=== PATIENT | male | born 1940 | race Caucasian/White ===

== ENCOUNTER 2024-06-21 09:16 | Emergency (ER) | payer MEDICARE, BC, SELFPAY ==
[2024-06-21] VITALS (8 sets, daily range): BP systolic 114–145; BP diastolic 70–94; PULSE 66–77; BMI 31.0
--- NOTE | 2024-06-21 09:43 | ED.GENMED ---
History of Present Illness
General
Chief Complaint: Dizziness
Source: patient
Exam Limitations: none
Time Seen by Provider: 06/21/24 09:30
History of Present Illness
History of Present Illness:
See MDM
Past History
Past History
ED Past Medical History: None
ED Past Surgical History: None
Social History
Tobacco: Non-smoker
Alcohol: None
Phy Exam
Physical Exam
Physical Exam:
See MDM
Scores
[id number] Score for Afib Stroke Risk
Age in Years (65=0, 65-74=1, >/=75=2): > or = 75
Sex (Female=+1): Male
Congestive Heart Failure History (Yes=+1): No
Hypertension History (Yes=+1): No
Stroke/TIA/Thromboembolism History (Yes=+2): No
Vascular Disease History (Yes=+1): No
Diabetes Mellitus (Yes=+1): No
Score: 2
Anticoagulation Recommendations: Recommend anticoagulation (as validated in nonvalvular fib)
Course
Orders/Labs/Results
Orders:
Orders
06/21/24 09:17
Electrocardiogram (*1) Urgent
Reason for Study: Vertigo / Dizzy
EKG- Treatment ONCE
06/21/24 09:42
Metoprolol [Lopressor] 5 mg IV NOW STA
06/21/24 10:17
Complete Blood Count/With Diff Urgent
Comprehensive Metabolic Panel Urgent
Magnesium Urgent
Troponin I Urgent
06/21/24 10:24
Metoprolol Xl [Toprol Xl] 12.5 mg PO NOW STA
06/21/24 11:19
Electrocardiogram (*1) Urgent
Reason for Study: Shortness of Breath
EKG- Treatment ONCE
06/21/24 11:20
Apixaban [Eliquis] 5 mg PO ONCE ONE
Abnormal Lab Results
06/21/24
10:17
RBC 4.56 L 10^6/uL
(4.70-6.10)
MCH 32.7 H pg
(27.0-31.0)
06/21/24 10:17
06/21/24 10:17
Vital Signs
Initial and Last Documented VS:
Initial Vital Signs
Temp Pulse Resp BP Pulse Ox
98.1 F 86 20 136/94 94
06/21/24 09:28 06/21/24 09:28 06/21/24 09:28 06/21/24 09:28 06/21/24 09:28
Last Documented Vital Signs
Temp Pulse Resp BP Pulse Ox
98.1 F 86 20 136/94 95
06/21/24 09:28 06/21/24 09:28 06/21/24 09:28 06/21/24 09:28 06/21/24 09:28
MDM/Problems Addressed
Differential Diagnosis Includes:
HPI and MDM Narrative:
83-year-old male presenting with intermittent dizziness over the past week or so. Screening EKG performed in triage showing rate controlled A-fib. Patient denies any prior history. We discussed that his symptoms are likely A-fib related. He did
note some mild chest pressure earlier today. He has been able to walk without difficulty.
Given the new onset A-fib, will obtain basic blood work to rule out any sort of metabolic derangement. He is extremely well-appearing nontoxic. Will start beta-wilfrid and Eliquis
Physical exam
General: Well appearing and non-toxic
HEENT: protecting airway
Neck: appears supple
CV: No evidence of cyanosis. Irregular rhythm, regular rate
Resp: No accessory muscle use
Abd: Non-distended
Extremities: No deformities
Neuro: alert
Psych: Normal affect
Skin: Intact
Problems Addressed including Acute and Chronic Conditions affecting care:
1. New onset A-fib
Acuity: acute
Prognosis: stable
Details: Patient is rate controlled. Will start low-dose beta-wilfrid and Eliquis. Will obtain basic blood work
Updates
Blood work without significant abnormalities. On reassessment, patient now in sinus rhythm. Patient started on Eliquis given his elevated [id number] score.
Differential Diagnosis (but not limited to): A-fib, hyperthyroidism
Testing considered: Chest x-ray but he denies shortness of breath currently
Drug therapy (if applicable): OTC meds, please see d/c instruction regarding Rx drugs
Amount and/or Complexity of Data Reviewed
Clinical info obtained from: Patient
External data reviewed: N/A
Labs I independently reviewed (but not limited to): trop normal
Radiology: N/A
Pulse Ox: not hypoxic
EKG independently reviewed: A-fib, left axis, no STEMI
Clinical Project Coordinator: Rate Controlled A-fib
Critical Care: N/A
Risk of Complication:
Social Determinants of health: Good social support
Discussed with other providers: N/A
Escalation of Care includes Admit/Obs: After being observed in the Emergency Department, pt stable for discharge.
Occasional wrong word or 'sound a like' substitutions may have occurred due to the inherent limitations of voice recognition software. Read the chart carefully and recognize, using context, where substitutions have occurred.
*Critical Care Note
Total Time (30-74mins, 75-104mins- exclusive of procedures): Not Applicable
ED Attending Note
-
Portions of this chart may have been created with voice recognition software.� Occasional wrong word or��sound alike� substitutions may have occurred due to the inherent limitations of voice recognition software.
Discharge Plan
Departure
Patient Disposition: Home (Routine Discharge)
Date of Disposition: 06/21/24
Time of Disposition: 11:22
Patient with high blood pressure during this ER visit?: No
Discharge Problem:
New onset atrial fibrillation
Instructions: Atrial Fibrillation (DC)
Prescriptions:
New
metoprolol succinate [Toprol XL] 25 mg tablet extended release 24 hr
12.5 mg PO BID Qty: 30 0RF
Eliquis 5 mg tablet
5 mg PO BID Qty: 60 0RF
Referrals:
Jenaro Barrett MD [Active] -
Doyle Peterson DO [Family Provider] -
Activity Restrictions/Additional Instructions:
Please return for any worsening symptoms.
You may return at any time if you have further concerns.
Please follow up with your doctor at the first available appointment, preferably this week.
Please make an appointment to see the department administrator.
You were given your first dose of blood pressure medicine and blood thinner today. You can take your second dose of both later tonight.
Thank you for choosing [facility].
Interventions
Interventions:
*Risk Screen - Suicide Last Done: 06/21/24 09:28
*General Assessment Last Done: 06/21/24 10:04
*Neglect/Abuse Screening Last Done: 06/21/24 09:30
ED- Fall Risk Assessment Last Done: 06/21/24 10:04
*ED COVID-19 Vaccine History Last Done: 06/21/24 10:04
Discharge Date and Time
Print Language: ZAMBIAN
[2024-06-21 10:31] LABS: % Basophils 0.5 % (0-2); % Immature Granulocytes 0.3 % (0-0.5); % Lymphocytes 30.8 % (20.5-51.1); % Monocytes 8.7 % (1.7-9.3); % Neutrophils 57.7 % (42.2-75.2); Absolute Eosinophils 0.1 10^3/uL (0-0.7); Absolute Lymphocytes 1.9 10^3/uL (1.2-3.4); Absolute Monocytes 0.5 10^3/uL (0.1-0.6); Absolute Neutrophils 3.5 10^3/uL (1.4-6.5); Hematocrit 42.2 % (39.0-52.0); Hemoglobin 14.9 g/dL (13.0-18.0); Mean Corp Hgb Conc. 35.3 g/dL (33.0-37.0); Mean Corpuscular Hgb 32.7 pg (27.0-31.0); Mean Corpuscular Volume 92.5 fL (80.0-94.0); Mean Platelet Volume 10.2 fL (7.4-10.4); Nucleated Red Blood Cells % 0 % (-); Platelet Count 218 10^3/uL (130-400); Red Blood Cell Count 4.56 10^6/uL (4.70-6.10); Red Cell Dist. Width 12.1 % (11.5-14.5); White Blood Cell Count 6.1 10^3/uL (4.8-10.8)
[2024-06-21 10:45] LABS: ALT (SGPT) 18 U/L (0-50); AST (SGOT) 23 U/L (17-59); Albumin 4.2 g/dl (3.5-5.0); Alkaline Phosphatase 50 U/L (38-126); Blood Urea Nitrogen 17 mg/dl (9-20); Calcium 9.8 mg/dl (8.4-10.2); Carbon Dioxide 22 mmol/L (22-30); Chloride 106 mmol/L (98-107); Estimated Creatinine Clearance 72 ml/min; Glucose 81 mg/dl (70-99); Magnesium 2.2 mg/dl (1.6-2.3); Potassium 4.6 mmol/L (3.5-5.1); Sodium 143 mmol/L (135-145); Total Protein 6.3 g/dl (6.3-8.2); eGFR > 60.00
[2024-06-21 10:55] LABS: Troponin I < 0.012 ng/ml
[2024-06-21] MEDS: TOPROL XL 12.5 MG PO (11:49)
[2024-06-21] MEDS: ELIQUIS 5 MG PO (11:50)
== END 2024-06-21 12:05 | disposition home or self-care (01) ==
LOC: EMR 09:16
PROVIDERS: EMERGENCY PHYSICIAN Student in an Organized Health Care Education/Training Program; FAMILY PHYSICIAN Internal Medicine
DX: I48.91 Unspecified atrial fibrillation (principal); R42 Dizziness and giddiness; R07.89 Other chest pain; Z88.1 Allergy status to other antibiotic agents
CPT/HCPCS: 99284; 80053; 83735; 84484; 85025; 93005

== ENCOUNTER 2024-06-22 09:15 | Emergency (ER) | payer MEDICARE, BC, SELFPAY ==
[2024-06-22 09:25] VITALS: BP 138/81
--- NOTE | 2024-06-22 09:31 | ED.GENMED ---
History of Present Illness
General
Chief Complaint: Dizziness
Source: patient and spouse
Exam Limitations: none
Time Seen by Provider: 06/22/24 09:27
History of Present Illness
History of Present Illness:
See MDM
Past History
Past History
ED Past Medical History: Arrthythmia
ED Past Surgical History: None
Social History
Tobacco: Non-smoker
Alcohol: None
Phy Exam
Physical Exam
Physical Exam:
See MDM
Course
Orders/Labs/Results
Orders:
Orders
06/22/24
Holter Monitor and Scan*(3) Stat
Comment: ALREADY DONE
06/22/24 09:16
Electrocardiogram (*1) Urgent
Reason for Study: Vertigo / Dizzy
EKG- Treatment ONCE
06/22/24 09:40
Orthostatic VS- Treatment ONCE
06/22/24 09:41
CT Head W/o Iv Contrast Urgent
Comment:
Reason For Exam: headache, dizziness
06/22/24 09:44
CARDIOLOGY CONSULT Urgent
Consulting Provider: Jermain Gonzalez
Was physician already notified: Yes
06/22/24 11:21
Electrocardiogram (*1) Urgent
Reason for Study: Tachycardia
EKG- Treatment ONCE
Vital Signs
Initial and Last Documented VS:
Initial Vital Signs
Temp Pulse Resp BP Pulse Ox
97.9 F 78 16 138/81 98
06/22/24 09:25 06/22/24 09:25 06/22/24 09:25 06/22/24 09:25 06/22/24 09:25
Last Documented Vital Signs
Temp Pulse Resp BP Pulse Ox
97.9 F 63 14 110/74 96
06/22/24 09:25 06/22/24 11:45 06/22/24 11:45 06/22/24 11:00 06/22/24 11:45
MDM/Problems Addressed
Differential Diagnosis Includes:
HPI and MDM Narrative:
83-year-old male presenting back to the emergency department for evaluation of dizziness. Patient was seen in the emergency department yesterday and his symptoms were believed to be related to new onset A-fib. He was started on Eliquis and
metoprolol. Patient was concerned because his blood pressure has been dropping and he is dizzy when he stands. Patient return for further evaluation
Patient states he only took 1 dose of metoprolol yesterday. He did not take his nighttime dose or his morning dose today. His dizziness appears to be random. It cannot reproduce the dizziness when I stand up quickly or with certain head
movements. No nystagmus noted. Will have cardiology evaluate
Physical exam
General: Well appearing and non-toxic
HEENT: protecting airway. No nystagmus
Neck: appears supple
CV: No evidence of cyanosis. Irregular rhythm. Regular rate
Resp: No accessory muscle use
Abd: Non-distended
Extremities: No deformities
Neuro: alert
Psych: Normal affect
Skin: Intact
Problems Addressed including Acute and Chronic Conditions affecting care:
1. Dizziness
Acuity: acute
Prognosis: stable
Details: Likely in setting of A-fib versus medication side effect
2. [ ]
Acuity: acute
Prognosis: stable
Details:
3. [ ]
Acuity: acute
Prognosis: stable
Details:
4. [ ]
Acuity: acute
Prognosis: stable
Details:
5. [ ]
Acuity:
Prognosis:
Details:
Updates
Cardiology did evaluate and believe that the symptoms could be related to wandering pacemaker rather than A-fib. The plan is CAD rule out as an outpatient with stress and echo before placing on flecainide. Cardiology indicated that patient does
not need Eliquis. He may continue the prescribed metoprolol
Differential Diagnosis (but not limited to): Medication reaction, vertigo, A-fib
Testing considered: Repeat blood work but he just had it done yesterday
Drug therapy (if applicable): OTC meds, please see d/c instruction regarding Rx drugs
Amount and/or Complexity of Data Reviewed
Clinical info obtained from: Patient
External data reviewed: N/A
Labs I independently reviewed (but not limited to): [ ]
Radiology: N/A
Pulse Ox: not hypoxic
EKG independently reviewed: A-fib, normal axis, no STEMI
Event Decorator: A fib
Critical Care: N/A
Risk of Complication:
Social Determinants of health: Good social support
Discussed with other providers: N/A
Escalation of Care includes Admit/Obs: After being observed in the Emergency Department, pt stable for discharge.
Occasional wrong word or 'sound a like' substitutions may have occurred due to the inherent limitations of voice recognition software. Read the chart carefully and recognize, using context, where substitutions have occurred.
*Critical Care Note
Total Time (30-74mins, 75-104mins- exclusive of procedures): Not Applicable
ED Attending Note
-
Portions of this chart may have been created with voice recognition software.� Occasional wrong word or��sound alike� substitutions may have occurred due to the inherent limitations of voice recognition software.
Discharge Plan
Departure
Patient Disposition: Home (Routine Discharge)
Date of Disposition: 06/22/24
Time of Disposition: 12:28
Patient with high blood pressure during this ER visit?: No
Discharge Problem:
Wandering atrial pacemaker
Prescriptions:
No Action
metoprolol succinate [Toprol XL] 25 mg tablet extended release 24 hr
12.5 mg PO BID Qty: 30 0RF
Eliquis 5 mg tablet
5 mg PO BID Qty: 60 0RF
Referrals:
Angelica Ramirez MD [Active] - (Follow up one week after testing.)
Doyle Peterson DO [Family Provider] -
Activity Restrictions/Additional Instructions:
A Holter monitor, echocardiogram, and Lexiscan nuclear stress test has been ordered for you. The cardiology office will assist you with arranging testing.
Please take your metoprolol as prescribed. Cardiology indicated that you do not need to take Eliquis.
Interventions
Interventions:
*Risk Screen - Suicide Last Done: 06/22/24 09:25
*General Assessment Last Done: 06/22/24 09:36
*Neglect/Abuse Screening Last Done: 06/22/24 09:25
ED- Fall Risk Assessment Last Done: 06/22/24 09:36
*ED COVID-19 Vaccine History Last Done: 06/22/24 09:36
*Nursing Disposition Last Done: 06/22/24 12:41
ED- Neurological Assessment Last Done: 06/22/24 09:36
Discharge Date and Time
Discharge Date/Time: 06/22/24 12:42
Print Language: CZECH
[2024-06-22 09:36] VITALS: BMI 27.3
[2024-06-22 09:43] VITALS: BP 106/70; BP 108/78; BP 111/85; PULSE 100; PULSE 74; PULSE 80
[2024-06-22 09:45] VITALS: BP 108/78; BP 111/85
--- NOTE | 2024-06-22 10:22 | CON.CAR ---
Addendum entered and electronically signed by Jermain Gonzalez MD 06/22/24 12:07:
I saw and examined the patient.
The ENGINEERING TEACHER's note was reviewed and I agree with the note.
Comment: 83-year-old male who presented to the emergency department yesterday, 06/21/2024 with intermittent dizziness. He appears to have intermittent atrial tachycardia after discussion with electrophysiology.
It is unclear how symptomatic he is, and whether he could have a component of tachybrady syndrome.
- HM
- ECHO
- Stress test for possible flecainide use
He will have f/u with Dr Ramirez.
Original Note:
Consultation
Consultation Request
Date/Time Consultation Requested: 06/22/2024 09:45
Date/Time Consultation Performed: 06/22/2024 10:20
Requesting Provider: Dr. Jeffries
Performing Provider: ALAN Montalvo for Dr. Gonzalez
Reason for Consultation: Dizziness, paroxysmal atrial fibrillation
Medical History
-
Chief Complaint: Dizziness
History of Present Illness:
Reynold Mcpherson is an 83-year-old male who presented to the emergency department yesterday, 06/21/2024 with intermittent dizziness. This started 1 week prior to arrival. He was diagnosed with rate controlled atrial fibrillation by the ER physician
and was started on metoprolol succinate and apixaban. He was discharged home. He presented back to the emergency room today for evaluation of persistent dizziness. He took 1 dose of metoprolol yesterday, he did not take his evening dose last
evening nor today's morning dose. On telemetry he appears to have frequent PACs with a wandering atrial pacemaker. He also appears to have some atrial tachycardia. He had episodes of this during consultation but did not endorse any symptoms.
Past Medical History
Past Medical History: Other (Elevated PSA)
Past Surgical History: Orthopedic (Left knee [2011], Lumbar laminectomy)
Social History
Tobacco: Non-Smoker
Alcohol: Occasional
Drug: None
Personal:
Living: With Family
Employment: Retired
Family History
Family History: Reviewed & Not Pertinent (Father with cerebral aneurysm, at age 56. Sister with leukemia, at age 79.)
Allergies / Home Medications
Allergy/AdvReac Type Severity Reaction Status Date / Time
levofloxacin Allergy Rash Verified 06/22/24 09:26
�Medication �Instructions �Recorded �Confirmed �Type
apixaban 5 mg tablet (Eliquis) 5 mg PO BID #60 tabs 06/21/24 Rx
metoprolol succinate 25 mg 12.5 mg (1/2 x 25 mg) PO BID #30 06/21/24 Rx
tablet,extended release 24 hr tabs
(Toprol XL)
Review of Systems
-
History Source: Patient
All other systems: Negative unless noted
Constitutional: No Symptoms
EENT: No Symptoms
Respiratory: No Symptoms
Cardiac: No Symptoms
Abdomen/GI: No Symptoms
: No Symptoms
Musculoskeletal: No Symptoms
Skin: No Symptoms
Neurological: Dizzy
Endocrine: No Symptoms
Hematologic/Lymphatic: No Symptoms
Physical Exam
Vital Signs
Temp Pulse Resp BP Pulse Ox
97.9 F 78 16 108/78 98
06/22/24 09:25 06/22/24 09:25 06/22/24 09:25 06/22/24 09:45 06/22/24 09:45
Physical Exam
General: Well Developed, Well Nourished, No Apparent Distress and Comfortable
HEENT: Normocephalic, Anicteric and Moist Mucous Membranes
Respiratory: Clear and Non Labored Respirations
Cardiac: S1/S2 and Irregular Rhythm; Negative Peripheral Edema
Breast: Deferred by me
GI: Soft, Non Tender, Non Distended and Normal Bowel Sounds
Rectal: Deferred by Provider
Genito-urinary: No Costovertebral Tender
Musculoskeletal: No Clubbing, No Cyanosis and No Edema
Skin: Warm and Dry
Neuro: AO x 3
Hematologic/Lymphatic: No Lymphadenopathy
Psych: Calm
Impression / Plan
-
Dizziness
-Not perfectly clear, arrhythmia on telemetry does not coincide with dizziness
-Frequent and intermittent, cannot reproduce
PACs
Wandering atrial pacemaker
-Flecainide would be appropriate, he needs ischemic evaluation prior to initiation
-Holter, echocardiogram, and Lexiscan nuclear stress testing will be arranged
Paroxysmal atrial fibrillation, diagnosed yesterday, none seen on telemetry, on apixaban
RBBB, new compared to 2019
Elevated PSA, follows with urology in the outpatient setting
Data Reviewed
-
EKG: Report Reviewed by me (Sinus rhythm with sinus arrhythmia, RBBB, rate 79)
CT Scan: Report Reviewed by me (Head: No acute intracranial abnormality.)
Labs: Labs Reviewed by me
Old Records: Reviewed
[2024-06-22 10:38] VITALS: BP 115/75
[2024-06-22 11:00] VITALS: BP 110/74
== END 2024-06-22 12:42 | disposition home or self-care (01) ==
LOC: EMR 09:15
PROVIDERS: CONSULT PHYSICIAN Internal Medicine Cardiovascular Disease; EMERGENCY PHYSICIAN Student in an Organized Health Care Education/Training Program; FAMILY PHYSICIAN Internal Medicine
DX: I49.1 Atrial premature depolarization (principal); I49.8 Other specified cardiac arrhythmias; I48.0 Paroxysmal atrial fibrillation; Z79.01 Long term (current) use of anticoagulants
CPT/HCPCS: 99284; 70450; 93005; 93225; 93226

== ENCOUNTER → 2024-07-09 13:47 | Outpatient (REF) | payer MEDICARE, BC, SELFPAY | LOC: HWRCS 13:47 | PROVIDERS: ATTENDING PHYSICIAN Internal Medicine Cardiovascular Disease; FAMILY PHYSICIAN Internal Medicine | DX: I49.1 Atrial premature depolarization (principal); I49.8 Other specified cardiac arrhythmias | CPT/HCPCS: 93306 ==

== ENCOUNTER → 2024-07-10 07:18 | Outpatient (REF) | payer MEDICARE, BC, SELFPAY | LOC: DHCBC/DCA 07:18 | PROVIDERS: ATTENDING PHYSICIAN Internal Medicine Cardiovascular Disease; FAMILY PHYSICIAN Internal Medicine | DX: I49.1 Atrial premature depolarization (principal); I49.8 Other specified cardiac arrhythmias; R94.31 Abnormal electrocardiogram [ECG] [EKG] | CPT/HCPCS: 78452; 93017; A9500; J2785 ==

== ENCOUNTER → 2024-07-14 06:37 | Outpatient (REF) | payer MEDICARE, BC, SELFPAY ==
[2024-07-14 10:13] LABS: HDL Cholesterol 57 mg/dl; LDL Cholesterol, Calculated 114 mg/dl; Total Cholesterol 187 mg/dl (50-199); Triglyceride 80 mg/dl (10-149); Very Low Density Lipoprotein 16 mg/dl (0-30)
[2024-07-14 10:13] LABS: Urine Albumin Negative (Neg - Trace); Urine Bilirubin Negative (Negative); Urine Character Clear (Clear); Urine Color Yellow; Urine Glucose Negative (Negative); Urine Ketone Negative (Negative); Urine Leukocyte Negative (Negative); Urine Nitrite Negative (Negative); Urine Occult Blood Negative (Negative); Urine Specific Gravity 1.015 (<1.030); Urine Urobilinogen Negative (Neg - 1+)
[2024-07-14 10:45] LABS: TSH 4.33 uIU/ml (0.47-4.68)
== END ==
LOC: HWLAB 06:37
PROVIDERS: ATTENDING PHYSICIAN Internal Medicine
DX: N40.1 Benign prostatic hyperplasia with lower urinary tract symptoms (principal); E78.2 Mixed hyperlipidemia; I47.19 Other supraventricular tachycardia; Z12.5 Encounter for screening for malignant neoplasm of prostate
CPT/HCPCS: 36415; 80061; 81003; 84443; G0103

== ENCOUNTER 2024-07-23 22:09 | Observation (INO) | payer MEDICARE, BC, SELFPAY ==
[2024-07-23] VITALS (11 sets, daily range): BP systolic 110–143; BP diastolic 72–102; BMI 29.1
--- NOTE | 2024-07-23 20:02 | ED.GENMED ---
History of Present Illness
<Talha Gagnon PA-C - Last Filed: 07/23/24 21:02>
General
Chief Complaint: Dizziness
Source: patient
Exam Limitations: none
Time Seen by Provider: 07/23/24 19:44
History of Present Illness
History of Present Illness:
83-year-old male presents with heart racing and dizziness. This has been worse over the past 2 days. He got up in the middle the night to urinate and he felt dizzy and that his heart was racing. This has been intermittent since then. Today has
been more prominent. 12-1/2 of metoprolol twice a day of which she did already today. He was here in the hospital about a month ago and thought to have an atrial tachycardia. He has since had a stress test and echocardiogram. He is followed by
cardiology. Not currently anticoagulated. He denies chest pain. No leg swelling. No arm numbness or weakness. No other complaints
Past History
<DANITA Carvajal Last Filed: 07/23/24 21:02>
Past History
ED Past Medical History: Arrthythmia
ED Past Surgical History: None
Social History
Tobacco: Non-smoker
Alcohol: None
Phy Exam
<DANITA Carvajal Last Filed: 07/23/24 21:02>
Physical Exam
Physical Exam:
General: Well-appearing male no acute respiratory distress
HEENT: Normocephalic atraumatic pupils equal round reactive to light
Heart: Irregular and tachycardic at times and regular rate and rhythm at other times
Lungs: Clear no wheeze
Abdomen is soft nontender nondistended
Extremities: No cyanosis or edema
Skin is warm no rash
Course
<DANITA Carvajal Last Filed: 07/23/24 21:02>
Orders/Labs/Results
Orders:
Orders
07/23/24 18:52
Electrocardiogram (*1) Urgent
Reason for Study: Vertigo / Dizzy
EKG- Treatment ONCE
07/23/24 19:59
Metoprolol [Lopressor] 2.5 mg IV NOW STA
07/23/24 20:06
Complete Blood Count/With Diff Urgent
Comprehensive Metabolic Panel Urgent
TSH Reflex To Free T4 Urgent
Abnormal Lab Results
07/23/24
20:06
MCH 32.5 H pg
(27.0-31.0)
Absolute Lymphs (auto) 3.7 H 10^3/uL
(1.2-3.4)
Absolute Monos (auto) 0.8 H 10^3/uL
(0.1-0.6)
Carbon Dioxide 21 L mmol/L
(22-30)
BUN 21 H mg/dl
(9-20)
07/23/24 20:06
07/23/24 20:06
Vital Signs
Initial and Last Documented VS:
Initial Vital Signs
Temp Pulse Resp Pulse Ox
98.8 F 75 17 99
07/23/24 18:57 07/23/24 18:57 07/23/24 18:57 07/23/24 18:57
Last Documented Vital Signs
Temp Pulse Resp BP Pulse Ox
98.8 F 73 15 117/82 95
07/23/24 18:57 07/23/24 20:45 07/23/24 20:45 07/23/24 20:30 07/23/24 20:01
Rashilt;Chris Dumont, DO - Last Filed: 07/23/24 20:29>
Orders/Labs/Results
Orders:
Orders
07/23/24 18:52
Electrocardiogram (*1) Urgent
Reason for Study: Vertigo / Dizzy
EKG- Treatment ONCE
07/23/24 19:59
Metoprolol [Lopressor] 2.5 mg IV NOW STA
07/23/24 20:06
Complete Blood Count/With Diff Urgent
Comprehensive Metabolic Panel Urgent
TSH Reflex To Free T4 Urgent
Abnormal Lab Results
07/23/24
20:06
MCH 32.5 H pg
(27.0-31.0)
Absolute Lymphs (auto) 3.7 H 10^3/uL
(1.2-3.4)
Absolute Monos (auto) 0.8 H 10^3/uL
(0.1-0.6)
Carbon Dioxide 21 L mmol/L
(22-30)
BUN 21 H mg/dl
(9-20)
07/23/24 20:06
07/23/24 20:06
Vital Signs
Initial and Last Documented VS:
Initial Vital Signs
Temp Pulse Resp Pulse Ox
98.8 F 75 17 99
07/23/24 18:57 07/23/24 18:57 07/23/24 18:57 07/23/24 18:57
Last Documented Vital Signs
Temp Pulse Resp BP Pulse Ox
98.8 F 73 15 117/82 95
07/23/24 18:57 07/23/24 20:45 07/23/24 20:45 07/23/24 20:30 07/23/24 20:01
Rashilt;Talha Gagnon PA-C - Last Filed: 07/23/24 21:02>
MDM/Problems Addressed
Differential Diagnosis Includes:
Patient with dizzy sensation with palpitations. Several times when I was in the room he went abruptly from a heart rate in the 70s to 180s. He felt it as a pressure in his head and dizziness. These episodes lasted less than a minute but happen
frequently.
Check electrolytes and thyroid. Will give Lopressor IV. Discussed with emergency room attending
<Talha Gagnon PA-C - Last Filed: 07/23/24 21:02>
*Critical Care Note
Total Time (30-74mins, 75-104mins- exclusive of procedures): Not Applicable
<Talha Gagnon PA-C - Last Filed: 07/23/24 21:02>
Update Note
Update Note:
Labs reviewed without significant electrolyte abnormality. Patient continues to go in and out of atrial tachycardia. Lopressor given. Will admit to hospitalist
ED Attending Note
<Talha Gagnon PA-C - Last Filed: 07/23/24 21:02>
-
Portions of this chart may have been created with voice recognition software.� Occasional wrong word or��sound alike� substitutions may have occurred due to the inherent limitations of voice recognition software.
<Chris Dumont DO - Last Filed: 07/23/24 20:29>
ED Attending Note
Patient seen and examined by attending physician: Yes
I performed the substantive portion of visit, reviewed & personally made and approve the management plan that is documented in note by myself or KYLER.: Yes
ED Attending Note:
Seen with PA examined independently very pleasant 83-year-old male and his presents with dizziness near syncope history of the same symptoms are progressive has seen cardiology and EP looks that he has atrial tach he is on beta-blockers had an
echo or Holter scheduled for an EP study here he has had several episodes where his heart rate goes into the 180s, given extra dose of IV beta-wilfrid at this point I think it safest to admit him to the hospital
Discharge Plan
Departure
Patient Disposition: Admit
Date of Disposition: 07/23/24
Time of Disposition: 21:01
Admit to: Telemetry
Presentation/result/management discussed w/ accepting MD/DO: Hospitalist
Discharge Problem:
Pre-syncope, Tachycardia
Prescriptions:
No Action
metoprolol succinate [Toprol XL] 25 mg tablet extended release 24 hr
12.5 mg PO BID Qty: 30 0RF
Referrals:
Doyle Peterson DO [Family Provider] -
Interventions
Interventions:
*Risk Screen - Suicide Last Done: 07/23/24 18:57
*General Assessment Last Done: 07/23/24 18:57
*Neglect/Abuse Screening Last Done: 07/23/24 18:57
ED- Fall Risk Assessment Last Done: 07/23/24 20:01
*ED COVID-19 Vaccine History Last Done: 07/23/24 20:01
ED- Neurological Assessment Last Done: 07/23/24 20:01
ED- Cardiac Assessment Last Done: 07/23/24 20:01
Discharge Date and Time
Print Language: LAO
[2024-07-23] MEDS: LOPRESSOR 2.5 MG IV ×2 (20:10→21:32)
[2024-07-23 20:15] LABS: % Basophils 0.4 % (0-2); % Immature Granulocytes 0.4 % (0-0.5); % Lymphocytes 37.2 % (20.5-51.1); % Monocytes 7.9 % (1.7-9.3); % Neutrophils 52.1 % (42.2-75.2); Absolute Eosinophils 0.2 10^3/uL (0-0.7); Absolute Lymphocytes 3.7 10^3/uL (1.2-3.4); Absolute Monocytes 0.8 10^3/uL (0.1-0.6); Absolute Neutrophils 5.2 10^3/uL (1.4-6.5); Hematocrit 44.3 % (39.0-52.0); Hemoglobin 15.8 g/dL (13.0-18.0); Mean Corp Hgb Conc. 35.7 g/dL (33.0-37.0); Mean Corpuscular Hgb 32.5 pg (27.0-31.0); Mean Corpuscular Volume 91.2 fL (80.0-94.0); Mean Platelet Volume 10.2 fL (7.4-10.4); Nucleated Red Blood Cells % 0 % (-); Platelet Count 239 10^3/uL (130-400); Red Blood Cell Count 4.86 10^6/uL (4.70-6.10); Red Cell Dist. Width 12.5 % (11.5-14.5)
[2024-07-23 20:52] LABS: ALT (SGPT) 18 U/L (0-50); AST (SGOT) 28 U/L (17-59); Albumin 4.8 g/dl (3.5-5.0); Alkaline Phosphatase 52 U/L (38-126); Blood Urea Nitrogen 21 mg/dl (9-20); Carbon Dioxide 21 mmol/L (22-30); Chloride 106 mmol/L (98-107); Glucose 93 mg/dl (70-99); Potassium 4.3 mmol/L (3.5-5.1); Sodium 141 mmol/L (135-145); Total Bilirubin 0.8 mg/dl (0.2-1.3); Total Protein 7.1 g/dl (6.3-8.2); eGFR > 60.00
[2024-07-23 21:24] LABS: TSH Reflex To Free T4 5.61 uIU/ml (0.47-4.68)
--- NOTE | 2024-07-23 21:26 | HPS.HSE ---
Family Physician
-
Family Physician: Doyle Peterson
Chief Complaint
-
Dizziness
History of Present Illness
This is a 83-year-old male who comes into the emergency department with recurrent episodes of dizziness and lightheadedness.
Patient was seen in the emergency department about 1 week ago and diagnosed with atrial fibrillation and monitoring pacemaker. At the time was complaining of episodes of lightheadedness that was recurrent. He had telemetry which showed
supraventricular tachycardia to as high as 170s. However on evaluation did not seem to appear to be correlating with his symptoms of dizziness. He had follow-up cardiology evaluation. He was placed on metoprolol 12.5 mg of XL twice daily. He
also had an echocardiogram which was normal except for mild regurgitation. He had stress test that shows no evidence of ischemia. He is pending MRI and an EP study at this time. He is not currently on any anticoagulation due to cardiology feeling
the patient does not have atrial fibrillation.
Patient saw cardiology yesterday and said he was feeling fine. He did have 1 episode of vertigo while he was in the bathroom. However today he has been having recurrent episodes of lightheadedness. Reports that he feels his episodes lasting less
than a minute but occurring quite frequently with dialysis shortness of duration of minutes intervals between episodes. A has no syncope. He denies having chest pain. He denies any lower extremity swelling.
In the emergency department he was afebrile. Blood pressure was 117/80. Pulse was 75 at rest. He was as high as 170 when he standing he did take adequate him. Oxygen saturation was normal on room air. ECG shows normal sinus rhythm with a pulse
rate of 87 and a right bundle. He also has frequent PACs. No PVC. This chemistries were all within normal limits. CBC was unremarkable. Case discussed with cardiology and patient referred for hospitalist admission.
Medical History
Past Medical History
Past Medical History: Reports Arrhythmia
Past Surgical History: Reports None
Social History
Tobacco: Non-smoker
Alcohol: None
Drug: None
Personal:
Living: With Family
Employment: Retired
Family History
Family History: Not pertinent
Allergies / Home Medications
Allergies reflects when Allergies were last updated in [facility].
Home Medications with original date entered in [facility]
Allergy/Medication List:
Allergies
Allergy/AdvReac Type Severity Reaction Status Date / Time
levofloxacin Allergy Rash Verified 06/22/24 09:26
Home Medications
metoprolol succinate 25 mg tablet,extended release 24 hr (Toprol XL) 12.5 mg (1/2 x 25 mg) PO BID #30 tabs 06/21/24
Review of Systems
-
History Source: Patient
Constitutional: Reports No Symptoms
EENT: Reports No Symptoms
Respiratory: Reports No Symptoms
Cardiac: Reports Syncope
Abdomen/GI: Reports No Symptoms
: Reports No Symptoms
Musculoskeletal: Reports No Symptoms
Skin: Reports No Symptoms
Neurological: Reports No Symptoms
Endocrine: Reports No Symptoms
Hematologic/Lymphatic: Reports No Symptoms
Psych: Reports No Symptoms
Physical Exam
Vital Signs
Vital Signs
Temp Pulse Resp BP Pulse Ox
98.8 F 73 15 117/82 95
07/23/24 18:57 07/23/24 20:45 07/23/24 20:45 07/23/24 20:30 07/23/24 20:01
Physical Exam
General: Well Developed, Well Nourished, No Apparent Distress and Comfortable
HEENT: NormoCephalic, Anicteric, Moist mucous membranes and Atraumatic
Respiratory: Clear
Cardiac: S1/S2 and Regular Rhythm
Breast: Deferred by me
GI: Soft, Non Tender, Non Distended and Normal Bowel Sounds
Rectal: Deferred by Provider
Genito-urinary: Clear Urine
Musculoskeletal: No Clubbing, No Cyanosis and No Edema
Skin: Warm
Neuro: AO x 3
Hematologic/Lymphatic: No Lymphadenopathy
Psych: Calm
Laboratory Results
-
07/23/24 20:06
07/23/24 20:06
Laboratory Results
Total Bilirubin 0.8 mg/dl (0.2-1.3) 07/23/24 20:06
AST 28 U/L (17-59) 07/23/24 20:06
ALT 18 U/L (0-50) 07/23/24 20:06
Alkaline Phosphatase 52 U/L (38-126) 07/23/24 20:06
Data Reviewed
-
Medical Tests (Nuc Med, Echo, EKG etc): Image Personally Visualized and interpreted and Report Reviewed by me
Lab Data: Labs Reviewed by me
Old Records: Reviewed
Impression/Plan
-
IMPRESSION:
83-year-old male with a history of paroxysmal supraventricular tachycardia who presents to the emergency department with recurrent episodes of lightheadedness and dizziness. Presyncopal but no central syncopal episode. In the ECG and found on
telemetry that he has episodes of tachycardia to 170. Does not appear to be a reentrant but unable to determine clearly. These episodes correlate with symptoms at this time.
PLAN:
1. Supraventricular Tachcyardia - Possibly re-entrant vs atrial tarchycardia pending MRI and EP study.
- admit to telemetry
- was supposed to have increased metoprolol but did not start yet. Increase metoprolol to 25mg po bid. give additional 5mg IV total
- normal saline bolus IV for now
- cardiology consulted and aware
- since non-sustained, will hold off on adenosine trial
DVT PPX - lovenox sq
Code Status - DNR
[2024-07-23] MEDS: NSS 250 IV (21:35)
[2024-07-23] MEDS: LOPRESSOR 25 MG PO (21:35)
[2024-07-23 21:53] LABS: Free T4 0.98 ng/dl (0.78-2.19)
--- NOTE | 2024-07-24 02:51 | PTCARENOTE ---
Pt received as admit from ED at 2320. Pt attached to tele monitor and ambulated independently without difficulty from stretcher to bed. HR/rhythm labile ranging from 150s and irregular to sinus lyudmila in the 50s with first degree AVB and BBB. Pt
states he feels some fluttering in his chest and dizziness when his HR is high. Denies CP and SOB. EKG obtained and placed in pt chart. Pt encouraged to ring for assistance as needed for ambulation due to feeling of dizziness. Pt oriented to room
and call guido within reach.
[2024-07-24 04:01] VITALS: BP 116/85
[2024-07-24 05:01] LABS: Blood Urea Nitrogen 16 mg/dl (9-20); Calcium 9.4 mg/dl (8.4-10.2); Carbon Dioxide 20 mmol/L (22-30); Chloride 110 mmol/L (98-107); Estimated Creatinine Clearance 64 ml/min; Glucose 95 mg/dl (70-99); Magnesium 2.2 mg/dl (1.6-2.3); Potassium 4.3 mmol/L (3.5-5.1); Sodium 143 mmol/L (135-145); eGFR > 60.00
[2024-07-24 07:18] VITALS: BP 119/88
--- NOTE | 2024-07-24 08:00 | PTCARENOTE ---
Addendum entered by Sindi Lechuga RN 07/24/24 08:05:
He does complain of 'pins and needles' in his right hand.
Original Note:
The patient is aaox3, vital signs are stable. 94% on RA. He has no complaints of sob or palpations. However. he states that he does get ' a little lightheaded ' when he stands to urinate. Sinus tach to sinus rhythm to sinus lyudmila has been noted on
the monitor. His HR fluctuates between the 40s-180s.
[2024-07-24] MEDS: FLUSH (NSS) 1 FLUSH IV (08:04)
--- NOTE | 2024-07-24 08:33 | CON.CAR ---
Addendum entered and electronically signed by Ino Rosario MD 07/24/24 11:18:
I saw and examined the patient.
The CHRONOMETER ADJUSTER's note was reviewed and I agree with the note.
Comment: He he has been having episodes of dizziness. Appears that when he has these episodes of dizziness described as a weird feeling in his head, he is in a rapid SVT. At the bedside with me, he had multiple episodes of recurrent sustained SVT
in the 170s. Blood pressure has been stable. He has a normal
Rate and rhythm, lungs are clear to auscultation bilaterally. Telemetry strips show extensive SVTs. No prolonged conversion pauses. At times he does have sinus bradycardia rhythm but these recover quickly. I did reach out to Dr. Ramirez who is
his doctor. He was seen 2 days ago. He is concerned that he may have tachybradycardia syndrome. However right now no evidence of that. Will approach rhythm control. He had a normal recent stress test and echocardiogram. Will add flecainide 100
mg p.o. twice daily and assess for rhythm control. We will continue to monitor him on telemetry to ensure no indication for pacemaker develops.
Original Note:
Consultation
Consultation Request
Date/Time Consultation Requested: 07/23/24 11:30p
Date/Time Consultation Performed: 07/24/24 8:30a
Requesting Provider: Dr. Abbott
Performing Provider: ALAN Garza for Dr. Rosario
Reason for Consultation: palpitations/PSVT
Medical History
-
Chief Complaint: palpitations, lightheadedness
History of Present Illness:
Mr. Mcpherson is an 83 yo male with paroxysmal atrial tachycardia on Toprol with episodes of bradycardia, who presents to the ER with c/o palpitations and lightheadedness. Tele in the ER showed episodes of PSVT with rates up to 170s, improved with IV
Lopressor. Tele reviewed with rapid rates up to 170s (PSVT/Atach) and also bradycardia in the 40s. He is admitted to the hospitalist service and we are consulted for arrhythmia management. He just saw Dr. Ramirez in the office 07/22/24 for EP
evaluation of atrial arrhythmias, his Toprol 12.5mg daily was increased to 25mg daily with plans for outpatient cMRI and eventual EP study. Currently he feels dizzy when his tele shows PSVT/Atach up to 170s, denies all other symptoms.
Past Medical History
Past Medical History: Other (as above)
Past Surgical History: Orthopedic (left knee, carpal tunnel, laminectomy )
Social History
Tobacco: Non-Smoker
Personal:
Living: With Family
Employment: Retired
Family History
Family History: Other (Father with cerebral aneurysm, at age 56. Sister with leukemia, at age 79)
Allergies / Home Medications
Allergy/AdvReac Type Severity Reaction Status Date / Time
levofloxacin Allergy Rash Verified 06/22/24 09:26
�Medication �Instructions �Recorded �Confirmed �Type
metoprolol succinate 25 mg 12.5 mg (1/2 x 25 mg) PO BID #30 06/21/24 07/23/24 Rx
tablet,extended release 24 hr tabs
(Toprol XL)
Review of Systems
-
History Source: Patient
All other systems: Negative unless noted
Physical Exam
Vital Signs
Temp Pulse Resp BP Pulse Ox
98.5 F 172 20 119/88 94
07/24/24 07:16 07/24/24 07:18 07/24/24 07:16 07/24/24 07:18 07/24/24 07:16
Lab Results
07/23/24 20:06
07/24/24 04:13
Physical Exam
General: Well Developed and Well Nourished
HEENT: Normocephalic, Anicteric and Moist Mucous Membranes
Respiratory: Clear and Non Labored Respirations
Cardiac: S1/S2 and Regular Rhythm (paroxysms of PSVT with rates in the 170s)
Breast: Deferred by me
GI: Soft, Non Tender, Non Distended and Normal Bowel Sounds
Rectal: Deferred by Provider
Genito-urinary: No Costovertebral Tender
Musculoskeletal: No Clubbing, No Cyanosis and No Edema
Skin: Warm and Dry
Neuro: AO x 3
Hematologic/Lymphatic: No Lymphadenopathy
Psych: Calm
Impression / Plan
-
PSVT/Atach - rates up to 170s then resolve quickly on their own.
- symptomatic with dizziness.
- plan to continue Toprol 12.5mg daily and will start Flecainide 100mg Q12h.
- monitor on tele.
- Lexiscan 07/10/24, normal w/o ischema.
- Echo 07/09/24, EF 55-60%, mild/mod MR, mild AR.
Bradycardia - noted in 40s when PSVT breaks.
- monitor on tele.
Abnormal TSH - 5.61 with free T4 0.98.
- per hospitalist.
Holter 06/23/24: NSR, Avg 77 bpm, range 54-154 bpm. Frequent (7% burden) of AT/SVT. 761 runs of AT/SVT, longest 138 beats at 178 bpm and fastest was 8 beats at 199 bpm. Mechanism of AT/SVT is uncertain but suspect focal atrial tachycardia. No VT and
no significant bradycardia.
Data Reviewed
-
EKG: Tracing Personally Visualized and interpreted (NSR PACs 87 bpm, ST with 1st degree AVB 107 bpm)
Medical Tests (Nuc Med, Echo etc): Report Reviewed by me (echo and Lexiscan WNL as above) and Other (Holter 06/23/24: NSR, Avg 77 bpm, range 54-154 bpm. Frequent (7% burden) of AT/SVT. 761 runs of AT/SVT, longest 138 beats at 178 bpm and fastest was
8 beats at 199 bpm. Mechanism of AT/SVT is uncertain but suspect focal atrial tachycardia. No VT and no significant bradycardia. )
Labs: Labs Reviewed by me
Old Records: Reviewed
[2024-07-24] MEDS: TOPROL XL 12.5 MG PO (09:51)
[2024-07-24] MEDS: TAMBOCOR 100 MG PO ×2 (09:51→20:50)
[2024-07-24 11:31] VITALS: BP 106/77
--- NOTE | 2024-07-24 12:28 | CM ---
CM following for DC planning needs.
Met w/ patient and spouse, Lisa at bedside to complete initial assessment.
Pt. resides w/ spouse in a private home. They also reside in [place] during months of Jun-December.
Pt. is functionally indep. at baseline w/ ADLs, mobility without the use of any assisted device. Pt. is quite active.
Pt. DOES NOT have Rx plan and pays [facility]ames for medications thru [facility].
Antic. DC plan is for home without needs.
CM will cont. to follow.
--- NOTE | 2024-07-24 13:27 | W.PN.HOSP.TC ---
Today's Communication/Plan
-
Monitor HR on tele
cards recs
toprol/flecainide.
Assessment / Plan
Assessment / Plan
General: Well Developed, Well Nourished, No Apparent Distress and Comfortable
HEENT: NormoCephalic, Anicteric, Moist mucous membranes and Atraumatic
Respiratory: Clear
Cardiac: S1/S2 and Regular Rhythm
Breast: Deferred by me
GI: Soft, Non Tender, Non Distended and Normal Bowel Sounds
Rectal: Deferred by Provider
Genito-urinary: Clear Urine
Musculoskeletal: No Clubbing, No Cyanosis and No Edema
Skin: Warm
Neuro: AO x 3
Hematologic/Lymphatic: No Lymphadenopathy
Psych: Calm
IMPRESSION:
83-year-old male with a history of paroxysmal supraventricular tachycardia who presents to the emergency department with recurrent episodes of lightheadedness and dizziness. Presyncopal but no central syncopal episode. In the ECG and found on
telemetry that he has episodes of tachycardia to 170. Does not appear to be a reentrant but unable to determine clearly. These episodes correlate with symptoms at this time.
PLAN:
Supraventricular Tachcyardia
- normal saline bolus IV on admission. Hold IVF. Encourage po intake.
- Tele reviewed with SVT.
- Toprol 12.5mg daily per cards. No need to increase dose as started on flecainide.
- Started on Flecainide
- Monitor HR closely as concern for tachybrady syndrome
- Monitor lytes.
- Cardiology following
Subclinical Hypothyroidism
-Repeat TFTs in 4-6 weeks
DVT PPX - lovenox sq
Code Status - DNR
d/w with spouse at bedside in details.
d/w with cardiology
Anticipated Discharge: > 48 hours
Subjective/Interval History
-
Date of Service: July 24, 2024
resting in bed
No lightheadedness at rest currently
Objective Data
-
Labs:
Laboratory Results
07/24/24
04:13
Sodium 143
Potassium 4.3
Chloride 110 H
Carbon Dioxide 20 L
BUN 16
Creatinine 0.8
Glucose 95
Calcium 9.4
Vital Signs:
Vital Signs
Temp Pulse Resp BP Pulse Ox
98.4 F 70 20 106/77 94
07/24/24 11:28 07/24/24 12:00 07/24/24 11:28 07/24/24 11:31 07/24/24 11:28
I&O
07/23/24 07/24/24 07/25/24
06:59 06:59 06:59
Output Total 800 / 800
Balance -800 / -800
[2024-07-24 16:23] VITALS: BP 99/82
--- NOTE | 2024-07-24 17:01 | PTCARENOTE ---
Since taking the Flecainide and the Metoprol, the patient's heart rhythm remained in NSR while on bedrest. However, when he did ambulate to the bathroom, his HR increased to the 170's but quickly dropped back down to the 70's. He had no complaints
of dizziness or lightheadedness during that time.
[2024-07-24] MEDS: LOVENOX 40 MG SC (17:40)
[2024-07-24 18:59] VITALS: BP 103/66
[2024-07-24 22:34] VITALS: BP 113/66
--- NOTE | 2024-07-25 00:52 | PTCARENOTE ---
Pt NSR on monitor. Had a short run of SVT when he was 'moving chair'. when at rest HR remains in 70s. Noted that HR dropped as low as 49 while asleep. No c/o dizziness or lightheadedness.
[2024-07-25 04:28] VITALS: BP 109/74
[2024-07-25 05:17] LABS: Blood Urea Nitrogen 23 mg/dl (9-20); Calcium 9.4 mg/dl (8.4-10.2); Carbon Dioxide 23 mmol/L (22-30); Chloride 108 mmol/L (98-107); Estimated Creatinine Clearance 57 ml/min; Glucose 93 mg/dl (70-99); Magnesium 2.2 mg/dl (1.6-2.3); Potassium 4.4 mmol/L (3.5-5.1); Sodium 143 mmol/L (135-145); eGFR > 60.00
[2024-07-25 07:28] VITALS: BP 123/81
[2024-07-25] MEDS: TOPROL XL 12.5 MG PO (07:48)
[2024-07-25] MEDS: TAMBOCOR 100 MG PO ×2 (07:48→19:39)
[2024-07-25] MEDS: FLUSH (NSS) 1 FLUSH IV (07:53)
--- NOTE | 2024-07-25 10:42 | PTCARENOTE ---
The patient is aaox3, vital signs are stable, 96% on RA. NSR is noted on the monitor with short bursts of SVT when the patient is ambulating in his room. He has no complaints of pain or SOB. He does however have vague complaints of dizziness at
times. 'I'm not sure if it's just because I'm thinking about it or if it's just in my head.'
--- NOTE | 2024-07-25 11:01 | W.PN.CD ---
Addendum entered and electronically signed by Jose Luis Gallegos MD 07/25/24 14:03:
I saw and examined the patient.
The EDI SPECIALIST's note was reviewed and I agree with the note.
Comment: Tolerating Flec. No pro-arrhythmia seen. AT is being suppressed nicely.
Original Note:
Today's Communication / Plan
-
-less atrial tachycardia noted and patient feeling better. No concerning bradycardia noted overnight.
-continue metoprolol and flecainide and follow telemetry. Repeat EKG in AM.
Impression / Plan
-
Reynold Mcpherson is an 83 y/o male with paroxysmal atrial tachycardia on Toprol with episodes of bradycardia, who presented to the ER with c/o palpitations and lightheadedness. Tele in the ER showed episodes of PSVT with rates up to 170. He also had
bradycardia in the 40s. No prolonged conversion pauses. Patient initiated on flecainide.
PSVT/Atach -
-improved, has not had any more dizziness. EKG stable. Some runs of atrial tachycardia, but less frequent and not symptomatic.
- continue Toprol 12.5mg daily. Flecainide 100mg Q12h started. Patient tolerating.
- monitor on tele.
- Lexiscan 07/10/24, normal w/o ischemia.
- Echo 07/09/24, EF 55-60%, mild/mod MR, mild AR.
Bradycardia - noted in 40s when PSVT breaks.
- monitor on tele.
-no concerning bradycardia overnight
Abnormal TSH - 5.61 with free T4 0.98.
- per hospitalist.
Holter 06/23/24: NSR, Avg 77 bpm, range 54-154 bpm. Frequent (7% burden) of AT/SVT. 761 runs of AT/SVT, longest 138 beats at 178 bpm and fastest was 8 beats at 199 bpm. Mechanism of AT/SVT is uncertain but suspect focal atrial tachycardia. No VT and
no significant bradycardia.
Subjective:
Feeling well and in good spirits
OOB to chair
Physical Exam
Vital Signs/Labs
Vital Signs
Temp Pulse Resp BP Pulse Ox
97.4 F 63 18 123/81 96
07/25/24 07:33 07/25/24 10:00 07/25/24 07:33 07/25/24 07:28 07/25/24 07:33
07/24/24 07/25/24 07/26/24
06:59 06:59 06:59
Actual Weight 83.1 kg
07/23/24 20:06
07/25/24 04:36
Magnesium 2.2 mg/dl (1.6-2.3) 07/25/24 04:36
Free T4 0.98 ng/dl (0.78-2.19) 07/23/24 20:06
Physical Exam
Constitutional: No acute distress
EENT: Anicteric
Cardiovascular: Rhythm & rate is regular
Respiratory: Respiratory effort normal and Lungs clear to auscul.
Neuro/Psych: AO x 3
Data Reviewed
-
Date of Service: July 25, 2024
EKG: Tracing Personally Visualized and interpreted (SR with RBBB) and Other (telemetry SR with brief runs AT)
--- NOTE | 2024-07-25 11:47 | W.PN.HOSP.TC ---
Today's Communication/Plan
-
cont toprol/flecainide
Assessment / Plan
Assessment / Plan
General: Well Developed, Well Nourished, No Apparent Distress and Comfortable
HEENT: NormoCephalic, Anicteric, Moist mucous membranes and Atraumatic
Respiratory: Clear
Cardiac: S1/S2 and Regular Rhythm
Breast: Deferred by me
GI: Soft, Non Tender, Non Distended and Normal Bowel Sounds
Rectal: Deferred by Provider
Genito-urinary: Clear Urine
Musculoskeletal: No Clubbing, No Cyanosis and No Edema
Skin: Warm
Neuro: AO x 3
Hematologic/Lymphatic: No Lymphadenopathy
Psych: Calm
IMPRESSION:
83-year-old male with a history of paroxysmal supraventricular tachycardia who presents to the emergency department with recurrent episodes of lightheadedness and dizziness. Presyncopal but no central syncopal episode. In the ECG and found on
telemetry that he has episodes of tachycardia to 170. Does not appear to be a reentrant but unable to determine clearly. These episodes correlate with symptoms at this time.
PLAN:
Supraventricular Tachcyardia
- normal saline bolus IV on admission. Hold IVF. Encourage po intake.
- Tele reviewed with SVT.
- Toprol 12.5mg daily per cards. No need to increase dose as started on flecainide.
- Started on Flecainide 100mg q12h. Trend EKG
- Monitor HR closely as concern for tachybrady syndrome
- Monitor lytes.
- Cardiology following
Subclinical Hypothyroidism
-Repeat TFTs in 4-6 weeks
DVT PPX - lovenox sq
Code Status - DNR
Anticipated Discharge: > 48 hours
Subjective/Interval History
-
Date of Service: July 25, 2024
Intermittent fluctuation of HR
at rest HR stable
Objective Data
-
Labs:
Laboratory Results
07/25/24
04:36
Sodium 143
Potassium 4.4
Chloride 108 H
Carbon Dioxide 23
BUN 23 H
Creatinine 0.9
Glucose 93
Calcium 9.4
Vital Signs:
Vital Signs
Temp Pulse Resp BP Pulse Ox
97.4 F 63 18 123/81 96
07/25/24 07:33 07/25/24 10:00 07/25/24 07:33 07/25/24 07:28 07/25/24 07:33
I&O
07/24/24 07/25/24 07/26/24
06:59 06:59 06:59
Intake Total 760 / 760 180 / 180
Output Total 800 / 800 700 / 700 300 / 300
Balance -800 / -800 60 / 60 -120 / -120
[2024-07-25 11:53] VITALS: BP 125/73
[2024-07-25 15:24] VITALS: BP 98/69
[2024-07-25] MEDS: LOVENOX 40 MG SC (17:22)
--- NOTE | 2024-07-25 17:48 | PTCARENOTE ---
No AT/SVT noted since after taking his Flecainide and Metoprol XL this morning. The patient has been oob ambulating in his room and in the halls without incident all shift.
[2024-07-25 19:35] VITALS: BP 109/74
[2024-07-25 22:48] VITALS: BP 129/86
[2024-07-26 04:26] VITALS: BP 109/70
[2024-07-26 05:44] LABS: Blood Urea Nitrogen 20 mg/dl (9-20); Calcium 9.5 mg/dl (8.4-10.2); Carbon Dioxide 26 mmol/L (22-30); Chloride 107 mmol/L (98-107); Estimated Creatinine Clearance 64 ml/min; Glucose 92 mg/dl (70-99); Magnesium 2.2 mg/dl (1.6-2.3); Potassium 4.3 mmol/L (3.5-5.1); Sodium 142 mmol/L (135-145); eGFR > 60.00
--- NOTE | 2024-07-26 05:48 | PTCARENOTE ---
Pt NSR to SB on monitor. VSS Denies dizziness, pain or any discomfort. Independent with mobility.
[2024-07-26 07:07] VITALS: BP 118/79
[2024-07-26] MEDS: FLUSH (NSS) 1 FLUSH IV (07:41)
[2024-07-26] MEDS: TAMBOCOR 100 MG PO ×2 (07:41→19:12)
[2024-07-26] MEDS: TOPROL XL 12.5 MG PO (07:41)
[2024-07-26 11:28] VITALS: BP 107/80
--- NOTE | 2024-07-26 11:46 | W.PN.HOSP.TC ---
Today's Communication/Plan
-
await cards recs
cont toprol
cont flecanide
OOB/Ambulate
Assessment / Plan
Assessment / Plan
General: Well Developed, Well Nourished, No Apparent Distress and Comfortable
HEENT: NormoCephalic, Anicteric, Moist mucous membranes and Atraumatic
Respiratory: Clear
Cardiac: S1/S2 and Regular Rhythm
Breast: Deferred by me
GI: Soft, Non Tender, Non Distended and Normal Bowel Sounds
Rectal: Deferred by Provider
Genito-urinary: Clear Urine
Musculoskeletal: No Clubbing, No Cyanosis and No Edema
Skin: Warm
Neuro: AO x 3
Hematologic/Lymphatic: No Lymphadenopathy
Psych: Calm
IMPRESSION:
83-year-old male with a history of paroxysmal supraventricular tachycardia who presents to the emergency department with recurrent episodes of lightheadedness and dizziness. Presyncopal but no central syncopal episode. In the ECG and found on
telemetry that he has episodes of tachycardia to 170. Does not appear to be a reentrant but unable to determine clearly. These episodes correlate with symptoms at this time.
PLAN:
Supraventricular Tachcyardia
- normal saline bolus IV on admission. Hold IVF. Encourage po intake.
- Tele reviewed with SVT.
- Toprol 12.5mg daily per cards. No need to increase dose as started on flecainide.
- Started on Flecainide 100mg q12h. Trend EKG .Qtc wnl.
- Monitor HR closely as concern for tachybrady syndrome
- Monitor lytes.
- OOB/ambualting.
- Cardiology following
Subclinical Hypothyroidism
-Repeat TFTs in 4-6 weeks
DVT PPX - lovenox sq
Code Status - DNR
Dispo-Cards recs. Home on DC.
Anticipated Discharge: Today
Subjective/Interval History
-
Date of Service: July 26, 2024
Denies any dizziness or palpitation
Walking around without any difficulty
Blood pressure heart rate stable
Tolerating diet
Objective Data
-
Labs:
Laboratory Results
07/26/24
04:36
Sodium 142
Potassium 4.3
Chloride 107
Carbon Dioxide 26
BUN 20
Creatinine 0.8
Glucose 92
Calcium 9.5
Vital Signs:
Vital Signs
Temp Pulse Resp BP Pulse Ox
97.6 F 65 20 118/79 95
07/26/24 11:28 07/26/24 07:07 07/26/24 11:28 07/26/24 07:07 07/26/24 11:28
I&O
07/25/24 07/26/24 07/27/24
06:59 06:59 06:59
Intake Total 760 / 760 660 / 660
Output Total 700 / 700 1400 / 1400
Balance 60 / 60 -740 / -740
--- NOTE | 2024-07-26 11:58 | W.PN.CD ---
Today's Communication / Plan
-
Tolerating Flec. No pro-arrhythmia seen. AT is being suppressed nicely.
Anticipate home in AM
Impression / Plan
-
Reynold Mcpherson is an 83 y/o male with paroxysmal atrial tachycardia on Toprol with episodes of bradycardia, who presented to the ER with c/o palpitations and lightheadedness. Tele in the ER showed episodes of PSVT with rates up to 170. He also had
bradycardia in the 40s. No prolonged conversion pauses. Patient initiated on flecainide.
PSVT/Atach
- improved, has not had any more dizziness. EKG stable. Some runs of atrial tachycardia, but less frequent and not symptomatic.
- continue Toprol 12.5mg daily. Flecainide 100mg Q12h started. Patient tolerating.
- monitor on tele.
Bradycardia, watch for sick sinus syndrome, so far no symptomatic bradycardia
Abnormal TSH - 5.61 with free T4 0.98.
Mild/mod valve disease, follow over time
Subjective:
Doing well.
Data:
- Lexiscan 07/10/24, normal w/o ischemia.
- Echo 07/09/24, EF 55-60%, mild/mod MR, mild AR
Holter 06/23/24: NSR, Avg 77 bpm, range 54-154 bpm. Frequent (7% burden) of AT/SVT. 761 runs of AT/SVT, longest 138 beats at 178 bpm and fastest was 8 beats at 199 bpm. Mechanism of AT/SVT is uncertain but suspect focal atrial tachycardia. No VT and
no significant bradycardia.
Physical Exam
Vital Signs/Labs
Vital Signs
Temp Pulse Resp BP Pulse Ox
97.6 F 65 20 118/79 95
07/26/24 11:28 07/26/24 07:07 07/26/24 11:28 07/26/24 07:07 07/26/24 11:28
07/23/24 20:06
07/26/24 04:36
Magnesium 2.2 mg/dl (1.6-2.3) 07/26/24 04:36
Free T4 0.98 ng/dl (0.78-2.19) 07/23/24 20:06
Physical Exam
Constitutional: No acute distress
EENT: Anicteric
Cardiovascular: Rhythm & rate is regular and Pedal edema is absent
Respiratory: Respiratory effort normal and Lungs clear to auscul.
GI: Soft and Distention absent
Neuro/Psych: AO x 3
Data Reviewed
-
Date of Service: July 26, 2024
[2024-07-26 15:19] VITALS: BP 91/60
[2024-07-26] MEDS: LOVENOX SC (18:10)
--- NOTE | 2024-07-26 18:11 | PTCARENOTE ---
The patient's vital signs have been stable all shift. NSR has been noted on the monitor all shift. He had one episode of AT/SVT this am before his Flecainide and Metoprol were given that quickly resolved. He has been doing laps all day in the halls.
No complaints of dizziness or lightheadedness were noted.
[2024-07-26 18:46] VITALS: BP 111/67
--- NOTE | 2024-07-26 19:55 | PTCARENOTE ---
Pt. received at change of shift. Pt. seen and assessed in room. Pt. comfortably sitting up in chair. Aox3, tele reading NSR w/ BBB. VS WNL. No complaints of pain at this time. This RN explained plan of care, pt. verbalizes plan of care. Call guido
within reach. Continuing to monitor at this time.
[2024-07-26 22:16] VITALS: BP 125/78
[2024-07-27 03:44] VITALS: BP 119/83
[2024-07-27 04:37] LABS: Blood Urea Nitrogen 21 mg/dl (9-20); Calcium 9.5 mg/dl (8.4-10.2); Carbon Dioxide 25 mmol/L (22-30); Chloride 106 mmol/L (98-107); Estimated Creatinine Clearance 64 ml/min; Glucose 93 mg/dl (70-99); Magnesium 2.2 mg/dl (1.6-2.3); Potassium 4.3 mmol/L (3.5-5.1); Sodium 141 mmol/L (135-145); eGFR > 60.00
[2024-07-27 07:47] VITALS: BP 126/83
--- NOTE | 2024-07-27 08:06 | PTCARENOTE ---
Assumed care of pt from prev nsg shift; Pt AAOx3 w/no c/o CP or SOB. Pt's VS stable w/HR in the 50's-60's, BP 126/83. Pt is SB/SR w/1st deg AV block & R BBB on telemetry monitoring. Pt assisted OOB to chair for breakfast. Pt w/very steady gait. Pt
w/no addtl needs at this time. Plan of care ongoing.
[2024-07-27] MEDS: TOPROL XL 12.5 MG PO (08:42)
[2024-07-27] MEDS: TAMBOCOR 100 MG PO (08:42)
--- NOTE | 2024-07-27 09:08 | W.PN.HOSP.TC ---
Addendum entered and electronically signed by Minal Marin MD 07/27/24 14:12:
total DC time 38 min
Original Note:
Today's Communication/Plan
-
see A/P
Assessment / Plan
Assessment / Plan
HPI: 83-year-old male with history of paroxysmal supraventricular tachycardia who presented to the emergency department with recurrent episodes of lightheadedness and dizziness.
Telemetry noted episodes of tachycardia to 170. These episodes correlate with symptoms at this time.
A/P:
# Supraventricular Tachycardia
s/p NSS bolus on admission. Hold IVF. Encourage po intake.
Tele reviewed, noted SVT.
Started Flecainide 100mg q12h. Trend EKG. Qtc wnl.
Toprol 12.5mg daily per cards. No need to increase dose as started on flecainide.
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
Monitor lytes.
OOB/ambualting.
Cardiology following
# Subclinical Hypothyroidism
TSH 5.61, FT4 0.98
Repeat TFTs in 4-6 weeks
DVT PPX - lovenox sq
Code Status - DNR
Dispo: HH
DW at bedside
Anticipated Discharge: Within 24 hours
Subjective/Interval History
-
Date of Service: July 27, 2024
Objective Data
-
Labs:
Laboratory Results
07/27/24
03:50
Sodium 141
Potassium 4.3
Chloride 106
Carbon Dioxide 25
BUN 21 H
Creatinine 0.8
Glucose 93
Calcium 9.5
Vital Signs:
Vital Signs
Temp Pulse Resp BP Pulse Ox
36.4 C 72 18 126/83 96
07/27/24 07:50 07/27/24 07:47 07/27/24 07:50 07/27/24 07:47 07/27/24 07:50
I&O
07/26/24 07/27/24 07/28/24
06:59 06:59 06:59
Intake Total 660 / 660 700 / 700
Output Total 1400 / 1400
Balance -740 / -740 700 / 700
Review of Systems
-
All other systems: Reviewed and negative
Physical Exam
-
General: Well Developed, Well Nourished, No Apparent Distress, Comfortable and Conversant; Negative Respiratory Distress
HEENT: Normocephalic, Atraumatic, Nose Appears Normal and Ears Appear Normal; Negative Oxygen
Respiratory: Clear to Auscultation and Non Labored Respirations; Negative Accessory Resp Muscle Use
Cardiac: Regular Rhythm and S1/S2
GI: Soft, Nontender, Nondistended and Normal Bowel Sounds
Skin: Warm and Dry
Neuro: Awake, Alert, Oriented, AO x 3 and Nonfocal/Grossly Intact
Psych: Calm and Intact Judgement/Insight
Data Reviewed
-
Labs: Labs Reviewed by me
--- NOTE | 2024-07-27 09:08 | CM ---
Addendum entered by Amanda Wild 07/27/24 15:44:
Received message from RN that his Flecainide 100 mg po q 12 is not in stock at [facility]. Telephone call to [facility] in [place], [place] to see if they have it in stock. [facility] [place] has it in stock. Asked attending physician to send a
new script to [facility]. Updated RN and patient and his spouse.
Original Note:
Reviewed chart. Met with and Mrs. Mcpherson to review discharge plans. He states he is feeling better and maybe able to go home soon. He states prior to admission he resides with his spouse in a two story home with two steps to enter. HE states
he has a fist floor set-up. He states prior to admission he was independent with ambulation and adls. He states he does not have any DME in the home. He states he does not have a prescription plan. He is aware of [facility]. We reviewed [facility]. He is declining [facility] at this time. Medical work-up in progress. The discharge plan is to return home with his spouse when medically stable.
--- NOTE | 2024-07-27 10:31 | W.PN.CD ---
Addendum entered and electronically signed by Angelica Ramirez MD 07/27/24 14:10:
Patient is seen and evaluated personally. I agree with the note, plan of care and assessment as documented below.
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
fascicular block on the EKG. Given patient's SVT and highly symptomatic recurrence, patient is started on flecainide 100 mg twice daily and metoprolol is increased to 25 mg twice a day. Given patient's age and conduction disease, flecainide may
not be a good drug for long-term use. Luckily patient's stress test has been negative without any ongoing ischemia and flecainide potentially can be used in the short-term with concomitant metoprolol on board. Patient's bradycardia/sick sinus
syndrome is evident limiting the use of high-dose of metoprolol.
Our plan was to do an EP study and assess for need for pacemaker especially with his conduction disease versus need for an ICD based on VT induction. We also discussed that the SVT can be ablated. Given the fact that now he has flecainide on board
with QRS widening, we will favor the SVT/A-fib flutter ablation. We will also do an EP study to assess the need for an ICD/pacemaker.
Original Note:
Today's Communication / Plan
-
-continue flecainide 100 mg PO Q 12 H
-continue metoprolol 12.5 mg daily
-Check EKG this AM
-Dr. Ramirez of EP to see patient today
Impression / Plan
-
Reynold Mcpherson is an 83 y/o male with paroxysmal atrial tachycardia on Toprol with episodes of bradycardia, who presented to the ER with c/o palpitations and lightheadedness. Tele in the ER showed episodes of PSVT with rates up to 170. He also had
bradycardia in the 40s. No prolonged conversion pauses. Patient initiated on flecainide.
PSVT/Atach
- improved with flecainide. Will continue 100 mg PO Q 12 H. Check EKG this AM. Tele is stable. Dr. Ramirez to see today.
- continue Toprol 12.5mg daily. Flecainide 100mg Q12h started. Patient tolerating.
Bradycardia, watch for sick sinus syndrome, so far no symptomatic bradycardia
Abnormal TSH - 5.61 with free T4 0.98.- plan per IM
Mild/mod valve disease, follow over time
Subjective:
Doing well- Ambulating. Looking forward to home when he is discharged.
Data:
- Lexiscan 07/10/24, normal w/o ischemia.
- Echo 07/09/24, EF 55-60%, mild/mod MR, mild AR
Holter 06/23/24: NSR, Avg 77 bpm, range 54-154 bpm. Frequent (7% burden) of AT/SVT. 761 runs of AT/SVT, longest 138 beats at 178 bpm and fastest was 8 beats at 199 bpm. Mechanism of AT/SVT is uncertain but suspect focal atrial tachycardia. No VT and
no significant bradycardia.
Physical Exam
Vital Signs/Labs
Vital Signs
Temp Pulse Resp BP Pulse Ox
97.5 F 72 18 126/83 96
07/27/24 07:50 07/27/24 07:47 07/27/24 07:50 07/27/24 07:47 07/27/24 07:50
07/27/24 03:50
Magnesium 2.2 mg/dl (1.6-2.3) 07/27/24 03:50
Free T4 0.98 ng/dl (0.78-2.19) 07/23/24 20:06
Physical Exam
Constitutional: No acute distress
EENT: Anicteric
Cardiovascular: Rhythm & rate is regular
Respiratory: Respiratory effort normal and Lungs clear to auscul.
Neuro/Psych: AO x 3
Data Reviewed
-
Date of Service: July 27, 2024
EKG: Tracing Personally Visualized and interpreted (SB with RBBB, 1st degree AVB) and Other (tele SR)
[2024-07-27 10:33] LABS: Hemoglobin 14.7 g/dL (13.0-18.0); Mean Corpuscular Hgb 32.9 pg (27.0-31.0); Mean Platelet Volume 10.3 fL (7.4-10.4); Platelet Count 212 10^3/uL (130-400); Red Blood Cell Count 4.47 10^6/uL (4.70-6.10); Red Cell Dist. Width 12.5 % (11.5-14.5); White Blood Cell Count 6.7 10^3/uL (4.8-10.8)
[2024-07-27 12:06] VITALS: BP 119/77
--- NOTE | 2024-07-27 14:06 | W.DCSUMMARY ---
Discharge Summary
Discharge Data
Date of Admission: 07/23/24
Date of Discharge: 07/27/24
-
Pending Results: No
Hospital Course
Principal Diagnosis:
Supraventricular Tachycardia
Subclinical Hypothyroidism
Chronic Diagnoses:�
Paroxysmal supraventricular tachycardia
Consultations:�
Cardiology
Procedures:�
None
Clinical course:�
This is a 83-year-old male with history of paroxysmal supraventricular tachycardia who presented with lightheadedness and dizziness. His telemetry noted episodes of tachycardia to 170. These episodes correlated with his symptoms.
Problem 1:
Supraventricular Tachycardia.
The patient was started with flecainide at 100mg q12h.
Given flecainide was started, he can continue with low-dose Toprol at 12.5 mg daily per cardiology.
Problem 2:
Subclinical Hypothyroidism
TSH 5.61, FT4 0.98
He can check repeat TFTs in 4-6 weeks with his PCP.
Discharge Plan
-
Patient Disposition: Home with Home Care
Discharge Diagnosis/Procedures: Supraventricular Tachycardia;
Subclinical hypothyroidism (TSH 5.61, FT4 0.98)
Condition: Good
Diet: As tolerated, Low Fat, Low Cholesterol and Low Sodium
Activity: As tolerated
Driving Restrictions: Not until seen by your Dr
Blood Work: TSH reflex FT4 in 4 weeks with your PCP
Referrals:
Heidy Ramirez CRNP [Specified Professional Personl] - 08/14/24 7:40 am
Doyle Peterson DO [Family Provider] - in less than 1 week
Additional Discharge Medication Instructions: We have added Flecainide 100mg every 12 hours
Prescriptions:
New
flecainide 100 mg Tablet
100 mg PO Q12 Qty: 60 0RF
metoprolol succinate 25 mg Tablet Extended Release 24 Hr
12.5 mg PO DAILY Qty: 30 0RF
Discontinued
metoprolol succinate [Toprol XL] 25 mg tablet extended release 24 hr
12.5 mg PO BID Qty: 30 0RF
Discharge Orders:
Discharge Patient (As Directed); Ordered 07/27/24
Ordered By: Minal Marin
Care Plan Goals
Care Plan Goals:
Problem: Readiness for enhanced knowledge related to diagnosis and treatment plan
Goal: Understand your diagnosis and treatment plan needs, including medications if applicable.
Instructions: Know your diagnosis, underlying causes and treatment plan options, including medications if applicable. Consult with your health care team to learn about your diagnosis and treatment plan, including medications if applicable.
Discharge Date and Time
Print Language: SUDANESE
--- NOTE | 2024-07-27 16:02 | PTCARENOTE ---
Pt's IV line & telemetry D/C'd; D/C instructions discussed w/pt & spouse. Pt told this RN that he received a call from [facility] that they do not have the flecainide available for pickup for a few days. This RN spoke w/[facility], Sw[facility] [place] [facility]. MD notified & prescription resent to new pharmacy. Pt escorted out via WC w/spouse driving him home.
== END 2024-07-27 16:00 | disposition home health service (06) ==
LOC: IVU 22:09
PROVIDERS: Hospitalist; Physician Assistant; ADMITTING PHYSICIAN Internal Medicine; ATTENDING PHYSICIAN Internal Medicine; EMERGENCY PHYSICIAN Emergency Medicine; FAMILY PHYSICIAN Internal Medicine; OTHER PHYSICIAN Internal Medicine Cardiovascular Disease
DX: I47.19 Other supraventricular tachycardia (principal); E03.8 Other specified hypothyroidism; R42 Dizziness and giddiness; R00.1 Bradycardia, unspecified; I49.1 Atrial premature depolarization; I45.10 Unspecified right bundle-branch block; I48.91 Unspecified atrial fibrillation; R00.2 Palpitations; R55 Syncope and collapse; Z88.1 Allergy status to other antibiotic agents; Z66 Do not resuscitate
CPT/HCPCS: 80048; 80053; 83735; 84439; 84443; 85025; 85027; 93005; 96361; 96374; 96376; 99285

== ENCOUNTER 2024-08-03 05:59 | Day surgery (SDC) | payer MEDICARE, BC, SELFPAY ==
[2024-08-03] VITALS (11 sets, daily range): BP systolic 106–140; BP diastolic 55–91; BMI 29.7
--- NOTE | 2024-08-03 08:59 | ITS.EPS ---
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
EPS
Procedure Report:
Electrophysiology study:
Mr. Mcpherson is a very pleasant 83 yr old gentleman with recurrent pre-syncope with severe conduction disease and SVT likely atrial tachycardia and non-sustained VT is here for EP study with VT induction and possible SVT ablation and assess need for
pacemaker vs ICD.
He has baseline bradycardia and tachy lyudmila syndrome limiting the use of beta blockers and severe conduction disease with wide QRS (RBBB and LAFB aberrancy) with SVT needing pacing and if VT is inducible would need an ICD as well. He is here for EP
study +/- SVT ablation with PPM or ICD placement.
Date of the Procedure:
08/03/2024
Indications: Tachycardia and recurrent presyncope with nonsustained VT and SVT along with severe conduction disease
Pre-Operative Diagnosis: Severe conduction disease with recurrent presyncope
Post-Operative Diagnosis: Severe conduction disease with recurrent presyncope
Procedure Performed: EP study
Performing physician:
Angelica Ramirez MD
Anesthesia:
See anesthesia records
Detailed Description of the Procedure:
Written informed consent was obtained from the patient after a full explanation of the risks and benefits of the procedure including the risks of sedation and anesthesia.
The patient was brought to the electrophysiology laboratory in stable condition in fasting state. Continuous electrocardiographic and hemodynamic monitoring was initiated. The initial rhythm was normal sinus.
The procedure site was meticulously prepared with surgical scrub and allowed to dry with no pooling. Sterile draping was applied to cover the procedure site. The image intensifier was draped with sterile bag and positioned over the patient.
After infusion of local anesthetic, vascular access was obtained under ultrasound guidance and sheaths were placed over guide wire as detailed below.
Sheaths:
��������� 7Fr sheath in right femoral vein
��������� 6Fr sheath in right femoral vein
��������� 6Fr sheath in right femoral vein
Catheters:
��������� 6Fr - Fidel Quad-cath at RVa
��������� 6Fr -CRD Quad-cath at HIS
��������� Decapolar Bard catheter - at locations of CS
Baseline intervals (milliseconds):
PP interval (baseline cycle length): 1165
P wave duration: 123
OK interval: 223
QRS duration: 196
QT interval: 532
AH interval: 106
His duration: 12
HV interval: 65
Q onset to RVa: 0
Sinus Node Function:
Burst pacing was performed from the right atrium at varying cycle lengths to measure the sinus node recovery time (SNRT) and corrected sinus node recovery time (cSNRT). The sinus node functions are within acceptable normal range.
Atrioventricular Zahida Function:
Atrial stimulation with incremental pacing intervals was performed from the high right atrium (HRA) and right ventricular apex (RVa) and antegrade and retrograde atrioventricular (AV) block cycle lengths were determined. The antegrade AV Wenckebach
was noted at 450 msec.
Programmed atrial stimulation was performed with drive train of 600 msec followed by a single atrial extra-stimulus and the AV zahida and the atrial ERPs were determined. The AV zahida ERP was 600/260 msec and the atrial ERP was 600/220 msec. The AV
conduction time from prox CS to RVa was 520 msec.
There was normal decremental conduction noted through the AV node. The programmed stimuli showed no evidence of dual pathways or echo beats.
Ventricular stimulation showed no retrograde conduction.
The AV zahida conduction was normal with infrahisian conduction disease.
Ventricular Function:
Single ventricular extrastimuli were delivered following drive train of 600 msec and 400 msec the ventricular ERP was determined 260 msec. The ventricular electrical functions are within acceptable range.
Arrhythmia Induction:
Burst pacing from the CS at both prox and distal locations were able to induce eccentric tachycardia at CL of 360 to 460 msec but were shot lived and could not be studied in detail.
Then the attention was given to ventricular arrhythmia induction. Programmed stimulation including single, double and triple extrastimuli were delivered from the RVa. The burst pacing from the RVa was also attempted. The RVa was paced as per MUSTT
protocol with no arrhythmia induced at drive train of 600 and then at 400 msec with S1, S2 and S3.
There was only non-sustained VT noted with no sustained ventricular arrhythmia induced with aggressive induction maneuvers.
Procedure End
Following the completion of the EP study, catheters were removed. The sheaths were removed and hemostasis achieved with figure of 8 suture and manual compression.
Estimated Blood loss:
<5 cc
Specimens Removed:
None.
Implants / Devices:
None
Urine output:
None
Packs / Drains/ Tubes:
None
Instrument / Sponge Count Correct:
Yes
Complications of the Procedure:
None
Condition of Patient at Time of Transfer:
Hemodynamically stable with no neurological or vascular compromise.
Summary:
Electrophysiology study with nonsustained left atrial arrhythmia and non-sustained ventricular arrhythmia noted with severe infra-hisian conduction disease with recommendation of pacemaker
--- NOTE | 2024-08-03 10:54 | ITS.CL.PACE ---
[employer] - Pacemaker Implant
Pacemaker Implant
Procedure Report:
Conduction system pacing Permanent Pacemaker Placement:
Mr. 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
recommended a dual chamber pacemaker. �Patient is left handed and would prefer a device in the right shoulder.
Indications:
Recurrent presyncope with severe conduction disease and tachybradycardia syndrome
Date of the Procedure:
08/03/24
Pre-Operative Diagnosis: Recurrent presyncope with severe conduction disease and tachybradycardia syndrome
Post-Operative Diagnosis: Recurrent presyncope with severe conduction disease and tachybradycardia syndrome
Procedure Performed: Conduction system pacing permanent pacemaker
Performing physician:
Angelica Ramirez MD
Anesthesia:
See anesthesia records
Detailed Description of the Procedure:
The patient was identified using hospital identification and informed consent obtained for the procedure. The risks were explained to the patient and the family including, but not limited to: Bleeding, infection, arrhythmia, stroke,
vascular/cardiac/lung puncture, surgery, pacemaker dependency/device malfunction. All questions were answered.
A surgical pause was performed in accordance with hospital regulations. Anesthesia service provided sedation as reported separately. Antibiotics administered IV for risk of bacterial colonization. After obtaining informed and written consent, the
patient was brought to the electrophysiology laboratory.
The initial rhythm was normal sinus rhythm with right bundle branch block left anterior fascicular block.
The procedure site was meticulously prepared with surgical scrub and allowed to dry with no pooling. Sterile draping was applied to cover the procedure site. The image intensifier was draped with sterile bag and positioned over the patient.
A surgical pause and time out was performed immediately prior to the procedure with review of her medical history, recent labs, allergies and medications with site of procedure identified and consent noted in the chart. Antibiotics pre operatively
given. All team members concurred.
The right infraclavicular region was prepped and draped in the usual sterile fashion. Local anesthesia was administered subcutaneously using 1% lidocaine / Bupivacaine. The right cephalic vein cutdown was performed with an incision at the
delto-pectoral groove, and vascular sheath was introduced for lead access.
A subcutaneous pocket was created with blunt dissection and use of electrocautery. Hemostasis was excellent.
The guide wire was advanced to the RA and was advanced to the RV. The preformed curved long hemostatic peel away HIS sheath was advanced into the RV cavity. A left bundle pacing wire was advanced into the sheath to the tip with ventricular signals
noted with unipolar manner. The HIS location was identified under guidance of the flouroscopy and the pacing wire signals. The sheath with the pacing lead was moved deeper into the RV cavity on the septum at a more inferior and distal to the HIS
signals.
Once adequate signals were noted on the electrograms of the pacing lead in the sheath with W pattern signals on the RV septum, the lead was advanced and clockwise turns were done under fluoroscopic guidance. The septum was engaged and the lead was
paced intermittently after every 2-3 turns. The Impedance of the lead was measured that remained stable around 500 Ohm and the lead was not able to advance into the septum. The pacing signals from the lead showed only RV septal pacing, though narrow
but not left bundle pacing. This was thought to be due to the entanglement effect of the lead to the septal endocardium. The decision was made to remove the lead and relocate to another locations.
A total of 5 different locations were tested for LBB pacing with either high threshold or poor pacing morphology with failure to advance the pacing lead deep into the septum.
Finally another septal location was identified with adequate signals noted on the pacing leads and good flouroscopic location. There was sheath approximation conformed on IRISH view and the pacing lead was advanced with clockwise turns into the septal
location. The septum was successfully engaged. The lead was paced and septal pacing was noted. The sheath was placed again to the septum and the lead was advanced 2-3 turns with pacing with each advancement. The ventricualr capture was monitored
throughout and the captures gradually changed from RV pacing to non-selective pacing to LBB pacing with small R wave on V1 yet wide qrs complex morphology that was so far better than the previous tested. �
The long guiding sheath was cut and removed from the RV without change in lead position, impedance, sensing, or capture. The lead was sutured to the underlying pectoralis fascia with 2-0 Ethibond stitches.
The RA lead was anchored in the right atrial appendage with engaging the active-fixation apparatus. There was excellent sensing, pacing, and impedance from the leads, with no diaphragmatic stimulation at 10 V output.�Bovie cautery, antibiotics, and
fluoroscopy were used.
The leads were attached to the pulse generator in standard configuration with acceptable sensing and threshold parameters. The pocket was irrigated with antibiotic solution; the pocket was inspected with no active bleeding noted. The device and the
leads were placed in the pocket.
A Tyrx pouch was placed around the device and the leads.
Deep subcutaneous tissues were closed with 3 layers of 2-0V loc sutures; and the dermis was reopposed using a running 4-0 V-Loc subcuticular suture. Sponge counts / sharp counts were appropriate.
Procedure End:
The procedure was tolerated well. Aquacel bandaged was applied.
Estimated Blood loss:
5 cc
Specimens Removed:
No cultures and no specimens were obtained. No intraoperative pathology was identified.
Urine output:
None
Packs / Drains/ Tubes:
None
Instrument / Sponge Count Correct:
Yes
Flouro time:
8.7min / 5.5Gycm2 (1.9 min of this was with EP study)
Complications of the Procedure:
None
Condition of Patient at Time of Transfer:
Hemodynamically stable with no neurological or vascular compromise.
Device information:�
Generator: Youtuo; Model: W1DR01; Serial # [id number]�
����������� Atrial Lead: Medtronic; Model: 5076-45; Serial # [id number]
Measured data in the right atrium was sensing of 3.8 mV, impedance of 399 ohms and threshold of 1.0 V at 0.4ms�
����������� LBB pacing lead: Medtronic; Model: 3830-69; Serial # [id number]
����������������������� Measured data on the RV lead was sensing of 7.0mV, impedance of 855 ohms and threshold of 1.25V at 0.4ms
PROGRAMMING PARAMETERS:�
Lyudmila parameter settings were AAIR <=>DDDR 60-130 �
����������� Paced AV interval: 180ms
����������� Sensed AV interval: 150 ms.
����������� Rate Adaptive A-V Interval: off
����������� Mode switch ON
Summary:
Successful implantation of MRI compatible conduction system pacing dual chamber permanent pacemaker.
Results/Recommendations:
-Please follow up CXR�
-Please provide patient with adequate pain control�
-Increase metoprolol to 25 mg BID
-Continue Flecainide for 2-3 months
Instructions to be given to patient:�
- Please follow up with [facility] at [address] [place] [address] ([phone]) to get your wound checked in 2 weeks of your discharge. Then follow with
- Do not wet incision site until after it is evaluated at cardiology clinic. No baths or showers until then. Sponge baths / showers are OK but dab dry the dressing after it is wet.�
- Allow 'steri strips' to fall off on their own�
- Do not lift right elbow above shoulder, particularly with sudden jerking movements, for 1 month�
- Do not lift anything weighing more than 5 pounds with the right arm for 1 month�
- If you notice any fevers, shortness of breath, lightheadedness, chest pain, or worsening swelling in the wound site, please contact the arrhythmia clinic, contact your director of radiology, or present to the hospital for evaluation.�
Angelica Ramirez MD
Electrophysiology
--- NOTE | 2024-08-03 13:54 | W.PN.UPDATE ---
Update Note
Progress Note Update
Pt seen post EP Study with PPM implant. Right groin without ht/bleeding, non tender. OOB ambulating, urinating without difficulty. Right ACW w/aquacel dressing CDI, no ht/bleeding, non tender. Arm sling to stay on for next 24h and at night. Activity
limitations reviewed w/pt and . Post CXR w/stable lead position, no pneumothorax. Incision check next week at [facility] as scheduled. Will increase metoprolol xl to 25mg BID. Home today if groin site/device site/tele remain stable.
[2024-08-03] MEDS: ANCEF 5 IV (14:38)
== END 2024-08-03 15:00 | disposition home or self-care (01) ==
LOC: CATH 05:59
PROVIDERS: ATTENDING PHYSICIAN Internal Medicine Cardiovascular Disease; FAMILY PHYSICIAN Internal Medicine
DX: I49.5 Sick sinus syndrome (principal); I45.10 Unspecified right bundle-branch block; I45.2 Bifascicular block; Z88.1 Allergy status to other antibiotic agents; I47.10 Supraventricular tachycardia, unspecified; R55 Syncope and collapse; I47.29 Other ventricular tachycardia
CPT/HCPCS: 33208; 93620; C1730; C1892; C1769; C1894; 71045; 86850; 86900; 86901; 93005; 93621; C1785; C1887; C1898

== ENCOUNTER 2025-02-23 13:28 | Observation (INO) | payer MEDICARE, BC, SELFPAY ==
[2025-02-23] VITALS (7 sets, daily range): BP systolic 113–149; BP diastolic 68–84; BMI 29.4; BMI 28.7
--- NOTE | 2025-02-23 10:23 | ED.GENMED ---
History of Present Illness
General
Chief Complaint: Visual Problem
Source: patient, records and spouse
Time Seen by Provider: 02/23/25 10:10
History of Present Illness
History of Present Illness:
This patient is an 84-year-old male who states that approximately 1-1/2 to 2 weeks ago while he was watching TV he lost vision only from the right eye. He says that he could see a little bit and describes it as about 80% of loss of vision. This
lasted 1 minute and then resolved completely. This was not associated with other symptoms. Patient states he had the exact same event last , again lasting 1 minute. He denies associated double vision, numbness, tingling, focal weakness,
chest pain, dyspnea, palpitations, headache, change in speech, change in balance, or other symptoms. He saw his eye doctor today was referred to the emergency department for further testing.
Past History
Past History
ED Past Medical History: Arrthythmia and Other (Hypothyroidism)
ED Past Surgical History: Orthopedic and Other (Pacer placement)
Social History
Tobacco: Non-smoker
Alcohol: None
Drug: None
Personal:
Living: with family
Phy Exam
Physical Exam
Physical Exam:
GENERAL: Alert , in no apparent distress
EYE: pupils round and reactive, status post dilation eye doctor right pupil larger than left, no photophobia, no nystagmus, EOMI
NECK: Supple, no significant adenopathy.
ENT: o/p clr, mmm.
CARDIAC: Regular rate and rhythm .
LUNGS: Clear breath sounds bilaterally, no acute respiratory distress, no wheezes/rales/rhonchi
ABDOMEN: Soft, without focal tenderness, no r/g, no cvat
NEUROLOGICAL: Alert and oriented, no focal neuro deficits, motor 5 out of 5, sensory intact, cranial nerves II through XII intact, [id number] normal
SKIN: Warm and dry, skin intact.
MUSCULOSKELETAL: No edema, well perfused.
PSYCH: Normal and appropriate interaction.
Course
Orders/Labs/Results
Orders:
Orders
02/23/25 10:23
Electrocardiogram (*1) Stat
Reason for Study: Other
Other Reason for Exam: neuro symptoms
CT Head W/o Iv Contrast Urgent
Comment:
Reason For Exam: visual change, R eye
Cardiac Monitoring- Treatment ONCE
EKG- Treatment ONCE
02/23/25 11:16
Complete Blood Count/No Diff Urgent
Comprehensive Metabolic Panel Urgent
TSH Reflex To Free T4 Urgent
Comment: ADD
Troponin I Urgent
02/23/25 12:06
Aspirin 325 mg PO NOW STA
02/23/25 12:32
CT Head & Neck Angio W/wo IV Urgent
Reason For Exam: cva/tia vision loss, order combined
02/23/25 12:36
NEUROLOGY CONSULT Routine
Consulting Provider: Hector Fowler
Was physician already notified: Yes
Reason for consult: vision loss right eye concern cva
02/23/25 12:37
Admit/Transfer Patient As Directed
Co-Sign Provider:
Level of Care: Observation services
Assign to:: Telemetry
Physician / Group: david duran
Diagnosis: right eye vision loss concern cva
Reason for Telemetry: CVA/TIA
Date to Stop Telemetry: 02/26/25
Time to Stop Telemetry: 11:00
Code Status As Directed
Resuscitation Status: Full Code
02/23/25 12:39
PRN Pain Medication Management As Directed
May give lesser potent ordered pain med per pt: Yes
preference::
Protocol:: Medication orders for pain may be administered in a
manner that supports deferring to patient preference
when the pt is:
- Requesting an ordered lesser potent pain medication.
Least to most potent pain medications are defined
as: acetaminophen < NSAID < tramadol < opioids
(morphine, oxycodone, hydromorphone).
- Requesting a lesser dose of the same medication IF
ORDERED.
- Requesting a less intrusive route of administration
if both routes are prescribed by the provider (PO <
IV).
02/23/25 12:45
Add On- LAB Urgent
Tests Added?: tsh with free t4
02/23/25 14:32
Acetaminophen [Tylenol] 650 mg PO Q4HPRN PRN
02/23/25 14:32
Activity As Directed
Activity Level: As Tolerated
Neurological Checks As Directed
Frequency: q4h
Pneumatic Compression Sleeves As Directed
Type: Knee high
Vital Signs As Directed
Frequency: Per unit guidelines
Pt Eval And Treat Routine
Activity Level: As Tolerated
DX Deep Vein Thrombosis Video Routine
02/23/25 Dinner
Cholesterol Lowering
At Your Request: Full Participation
Does patient need a safe tray?: No
Cholesterol Lowering: Sodium, 2 Gram
02/24/25 06:00
Cardiovascular Evaluation IN AM
Complete Blood Count/With Diff IN AM
Comprehensive Metabolic Panel IN AM
Hgba1c [Glycohemoglobin (HgbA1c)] IN AM
02/26/25 11:00
DC Protocol for Telemetry ONCE
Abnormal Lab Results
02/23/25
11:16
RBC 4.35 L 10^6/uL
(4.70-6.10)
MCV 96.3 H fL
(80.0-94.0)
MCH 33.1 H pg
(27.0-31.0)
Chloride 109 H mmol/L
(98-107)
Alkaline Phosphatase 36 L U/L
(38-126)
02/23/25 11:16
02/23/25 11:16
Vital Signs
Initial and Last Documented VS:
Initial Vital Signs
Temp Pulse Resp BP Pulse Ox
98.1 F 80 16 149/81 97
02/23/25 09:49 02/23/25 09:49 02/23/25 09:49 02/23/25 09:49 02/23/25 09:49
Last Documented Vital Signs
Temp Pulse Resp BP Pulse Ox
98.1 F 62 12 126/72 96
02/23/25 09:49 02/23/25 12:00 02/23/25 12:00 02/23/25 12:00 02/23/25 12:00
*Critical Care Note
Total Time (30-74mins, 75-104mins- exclusive of procedures): Not Applicable
Update Note
Update Note:
Patient presents to the Emergency Department with visual change, resolved
Number and Complexity of Problems Addressed at the Encounter
� Chronic conditions affecting care:
� Acute Exacerbation and/or Progression of Chronic Illness:
� Differential Diagnosis includes: But not limited to TIA, CVA, etc
Amount and/or Complexity of Data to be Reviewed and Analyzed
� I performed an independent evaluation of and my interpretation is:
EKG:read by me, atrial paced, RBBB, T wave flattening, no acute ST elevations
CT:There is mild bilaterally symmetric prominence of the ventricles and extra-axial CSF spaces representing volume loss. There are bilateral white matter hypodensities which are nonspecific, but most likely related to chronic
small vessel ischemic disease. There is no acute bleed, mass effect, or midline shift. The posterior fossa structures are within normal limits. There are some incidental choroid plexus cysts as seen previously. No acute loss of savage-white
differentiation is identified. There is no skull fracture.
IMPRESSION: No significant change. No acute intracranial abnormality identified.
Xrays:
Laboratory Studies: Generally unremarkable
Other:
� Review of other/old records reveals: Review of office notes from patient's visit to the eye doctor here. He had a dilated exam. Eye doctor concerned about amaurosis fugax.
� Clinical information was obtained by an independent historian:
� Prescriptions/Medications Considered but not given:
� Further testing considered but not performed:
Risk of Complications and/or Morbidity or Mortality of Patient Management
� Social determinants of health affecting care:
� Discussion with other providers (PCP, Hospitalists, Consultants, etc):
� Escalation of care including admission/observation vs risk of discharge considered:call placed to DR Sven Jaime...left message on .
ED Attending Note
-
Portions of this chart may have been created with voice recognition software.� Occasional wrong word or��sound alike� substitutions may have occurred due to the inherent limitations of voice recognition software.
Discharge Plan
Departure
Patient Disposition: Admit
Date of Disposition: 02/23/25
Time of Disposition: 12:08
Admit to: Telemetry
Presentation/result/management discussed w/ accepting MD/DO: Hospitalist
Condition: Fair
Discharge Problem:
Change in vision
Interventions
Interventions:
*Risk Screen - Suicide Last Done: 02/23/25 09:49
*General Assessment Last Done: 02/23/25 09:49
*Neglect/Abuse Screening Last Done: 02/23/25 09:49
*ED- Fall Risk Assessment Last Done: 02/23/25 12:08
*ED COVID-19 Vaccine History Last Done: 02/23/25 12:08
ED- Neurological Assessment Last Done: 02/23/25 13:57
ED Swallowing Screen Last Done: 02/23/25 13:09
[2025-02-23 11:29] LABS: Hematocrit 41.9 % (39.0-52.0); Hemoglobin 14.4 g/dL (13.0-18.0); Mean Corp Hgb Conc. 34.4 g/dL (33.0-37.0); Mean Corpuscular Hgb 33.1 pg (27.0-31.0); Mean Corpuscular Volume 96.3 fL (80.0-94.0); Mean Platelet Volume 10.4 fL (7.4-10.4); Platelet Count 197 10^3/uL (130-400); Red Blood Cell Count 4.35 10^6/uL (4.70-6.10); Red Cell Dist. Width 12.2 % (11.5-14.5); White Blood Cell Count 6.4 10^3/uL (4.8-10.8)
[2025-02-23 11:49] LABS: ALT (SGPT) 16 U/L (0-50); AST (SGOT) 24 U/L (17-59); Albumin 4.4 g/dl (3.5-5.0); Alkaline Phosphatase 36 U/L (38-126); Blood Urea Nitrogen 18 mg/dl (9-20); Calcium 9.6 mg/dl (8.4-10.2); Carbon Dioxide 27 mmol/L (22-30); Chloride 109 mmol/L (98-107); Estimated Creatinine Clearance 64 ml/min; Glucose 91 mg/dl (70-99); Potassium 4.6 mmol/L (3.5-5.1); Sodium 142 mmol/L (135-145); Total Bilirubin 1.2 mg/dl (0.2-1.3); Total Protein 6.8 g/dl (6.3-8.2); eGFR > 60.00
[2025-02-23 11:55] LABS: Troponin I < 0.012 ng/ml
--- NOTE | 2025-02-23 12:26 | HPS.HSE ---
Addendum entered and electronically signed by ALAN Christianson 02/23/25 15:00:
Pt on metoprolol 25 mg hs not BID
will cont Metoprolol suc 25 mg hs with hold parameters
Original Note:
Family Physician
-
Family Physician: Doyle Peterson
Chief Complaint
-
abnormal Rt eye vision
History of Present Illness
HPI
84M Lt hand dominant Gentleman HX paroxysmal SVT,subclinical hypothyroid seen at ER
- abnormal Rt eye vision
- 1 to 2 weeks ago while he was watching TV he lost vision only from the right eye, bout 80% of loss of vision.
- lasted 1 minute and then resolved completely.
- no associated other symptoms.
- report he had the exact same event last , again lasting 1 minute.
- denies associated double vision, numbness, tingling, focal weakness
- denied chest pain, dyspnea, palpitations, headache, change in speech, change in balance, or other symptoms.
- Evaluated by Education Professor today was referred to the ER for further testing.
Medical History
Past Medical History
Past Medical History: Reports Arrhythmia (SVT ) and Hyperthyroidism (Subclinical Hypothyroidism HX as of June 2024 TSH 5.61, FT4 0.98 as of 07/23/24)
Past Surgical History: Reports None and Cardiac (PPM implant Medtronic MRI compatible dual chamber )
Social History
Tobacco: Non-smoker
Alcohol: None
Drug: None
Personal:
Living: With Family
Employment: Retired
Family History
Family History: Not pertinent
Allergies / Home Medications
Allergies reflects when Allergies were last updated in [facility].
Home Medications with original date entered in [facility]
Allergy/Medication List:
Allergies
Allergy/AdvReac Type Severity Reaction Status Date / Time
levofloxacin Allergy Rash Verified 02/23/25 09:52
Home Medications
flecainide 100 mg tablet 100 mg PO BID 08/03/24
metoprolol succinate 25 mg tablet,extended release 24 hr 25 mg PO BID #60 tabs 08/03/24
Review of Systems
-
Constitutional: Reports No Symptoms
EENT: Reports No Symptoms
Respiratory: Reports No Symptoms
Cardiac: Reports No Symptoms
Abdomen/GI: Reports No Symptoms
: Reports No Symptoms
Musculoskeletal: Reports No Symptoms
Skin: Reports No Symptoms
Neurological: Reports No Symptoms
Endocrine: Reports No Symptoms
Hematologic/Lymphatic: Reports No Symptoms
Psych: Reports No Symptoms
Physical Exam
Vital Signs
Vital Signs
Temp Pulse Resp BP Pulse Ox
98.1 F 62 12 126/72 96
02/23/25 09:49 02/23/25 12:00 02/23/25 12:00 02/23/25 12:00 02/23/25 12:00
Physical Exam
General: No Apparent Distress, Comfortable and Conversant
HEENT: NormoCephalic, Anicteric and Other ( status post dilation eye doctor right pupil larger than left, no photophobia, no nystagmus, EOMI)
Respiratory: Clear; No Wheezes, Rales or Rhonchi
Cardiac: S1/S2 and Regular Rhythm
GI: Soft, Non Tender and Non Distended
Genito-urinary: Deferred by me
Musculoskeletal: No Edema
Skin: Warm and Dry
Neuro: AO x 3 and No Motor Deficits
Laboratory Results
-
02/23/25 11:16
02/23/25 11:16
Laboratory Results
Total Bilirubin 1.2 mg/dl (0.2-1.3) 02/23/25 11:16
AST 24 U/L (17-59) 02/23/25 11:16
ALT 16 U/L (0-50) 02/23/25 11:16
Alkaline Phosphatase 36 U/L (38-126) L 02/23/25 11:16
Troponin I < 0.012 ng/ml 02/23/25 11:16
Data Reviewed
-
CT Scan: Report Reviewed by me
Medical Tests (Nuc Med, Echo, EKG etc): Report Reviewed by me
Lab Data: Labs Reviewed by me
Old Records: Reviewed
Impression/Plan
-
Data
Unremarkable
EKG
Atrial-paced rhythm with prolonged AV conduction
RIGHT BUNDLE BRANCH BLOCK
INFERIOR INFARCT (CITED ON OR BEFORE 27-JUL-2024)
ABNORMAL ECG
WHEN COMPARED WITH ECG OF 03-AUG-2024 11:10,
ELECTRONIC ATRIAL PACEMAKER HAS REPLACED SINUS RHYTHM
Confirmed by MD MIRELLA, ZAIRA Poe ([id number]) on 02/23/2025 12:10:05 PM
HCT
There are bilateral white matter hypodensities which are nonspecific, but most likely related to chronic small vessel ischemic disease.No significant change. No acute intracranial abnormality identified
TTE: No prior study available for comparison.
LV ejection fraction is 55-60%.
Mild/moderate mitral regurgitation.
Mild aortic regurgitation.
Mildly enlarged right ventricular size.
Normal right ventricular systolic function.
Last hospitalist admission: 07/23/24 - 07/27/24
Principal Diagnosis:
Supraventricular Tachycardia
Subclinical Hypothyroidism
Chronic Diagnoses:
Paroxysmal supraventricular tachycardia
ASSESSMENT & PLAN
Pending Rx reconciliation
Recurrence of transient roughly 80 % loss of Rt Eye vision with spontaneous resolution
Normal speech and language function
No associated NFND
Concern for CVA/TIA
Lt hand dominant
- NEG HCT
- s/p ASA 325 mg loading dose , will cont. babay ASA
- Brain MRI in AM
- Neurology consult - suggest CTA of H & N
Supraventricular Tachycardia. HX
06/1024 TTE: LV ejection fraction is 55-60%.
- on flecainide at 100mg q12h.
- on MANUAL MACHINIST low-dose Toprol at 12.5 mg daily per cardiology
- Known to [facility] card
PPM implant Medtronic MRI compatible dual chamber ( 08/03/[address] Yee - [facility])
Subclinical Hypothyroidism HX as of June 2024
TSH 5.61, FT4 0.98
check TSH and TFTs
DVT Px: SCD
DNR confirmed by patient
Obs TLM
[2025-02-23] MEDS: ASPIRIN 325 MG PO (12:32)
--- NOTE | 2025-02-23 13:27 | CON.NEURO ---
Documented by User: Riya Hernandez NP 02/23/25 16:03
Neuro Assessment/Plan
Assessment
Recurrence of transient roughly 80% loss of Right eye vision with spontaneous resolution concerning for CVA/TIA
Possible embolic etiology given CTA negative for major branch vessel occlusion
CTA head and neck: Mild atherosclerotic changes as above. 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 Negative for major branch vessel occlusion, dissection,
aneurysm formation, or flow limiting stenosis.
Head CT: There are bilateral white matter hypodensities which are nonspecific, but most likely related to chronic small vessel ischemic disease.No significant change. No acute intracranial abnormality identified
EKG
Atrial-paced rhythm with prolonged AV conduction
RIGHT BUNDLE BRANCH BLOCK
INFERIOR INFARCT (CITED ON OR BEFORE 27-JUL-2024)
ABNORMAL ECG
WHEN COMPARED WITH ECG OF 03-AUG-2024 11:10,
ELECTRONIC ATRIAL PACEMAKER HAS REPLACED SINUS RHYTHM
Confirmed by MD MIRELLA, ZAIRA Poe ([id number]) on 02/23/2025 12:10:05 PM
TTE: No prior study available for comparison.
LV ejection fraction is 55-60%.
Mild/moderate mitral regurgitation.
Mild aortic regurgitation.
Mildly enlarged right ventricular size.
Normal right ventricular systolic function.
LDL and Hgb A1C pending
Plan
-Check MRI brain without contrast to evaluate for stroke, PPM implant Medtronic MRI compatible dual chamber (08/03/[address] Ramirez)
-CTA head/neck reviewed
-BP goal is normotension.
-Start ASA 81mg and Clopidogrel 75 mg daily for 21 days followed by monotherapy with ASA
-Check hemoglobin A1C. Goal <7.
-Check LDL with goal <70, start atorvastatin 40 mg nightly
-DVT prophylaxis
-Continue neurochecks and NIHSS per unit guidelines
-Stroke education materials provided
-Plan reviewed with patient, family and Dr. Fowler
Consultation
Order
Date of Consultation: 02/23/25
Requesting Provider: Dr. Kieran Marshall/hospitalist
Reason for Consult: CVA/TIA
Subjective/Objective
Subjective Data
Date of Service: February 23, 2025
This patient is an 84-year-old male with a past medical history of Aflutter/SVT ablation s/p PPM who states that approximately 2 weeks ago while he was watching TV he lost vision only from the right eye. He says that he could see a little bit and
describes it as about 80% of loss of vision medially to center on right. This lasted 1 minute and then resolved completely. This was not associated with other symptoms. Patient states he had the exact same event last , again lasting 1
minute. He denies associated double vision, numbness, tingling, focal weakness, chest pain, dyspnea, palpitations, headache, change in speech, change in balance, or other symptoms. He saw his eye doctor today was referred to the emergency
department for further testing. Denies issues with left eye. No right eye issues before two weeks ago. Saw his procurement manager on February 01 and had no issues at that time also has history of bilateral cataract surgery 01/2024 and 02/2024. No chest
pain, dyspnea or recent illnesses. Head CT with no acute intracranial abnormality identified. CTA head and neck with mild atherosclerotic changes, negative for major branch vessel occlusion, dissection, aneurysm formation, or flow limiting stenosis.
Patient was loaded with ASA 325 mg. TNK not given patient out of window and NIHSS 0.
Objective Data
Vital Signs
Temp Pulse Resp BP Pulse Ox
98.1 F 62 12 126/72 96
02/23/25 09:49 02/23/25 12:00 02/23/25 12:00 02/23/25 12:00 02/23/25 12:00
Lab Results
02/23/25 11:16
02/23/25 11:16
Sodium 142 mmol/L (135-145) 02/23/25 11:16
Potassium 4.6 mmol/L (3.5-5.1) 02/23/25 11:16
BUN 18 mg/dl (9-20) 02/23/25 11:16
Glucose 91 mg/dl (70-99) 02/23/25 11:16
Calcium 9.6 mg/dl (8.4-10.2) 02/23/25 11:16
Patient Allergies
levofloxacin Allergy (Verified 02/23/25 09:52)
Rash
CVA Assessment
NIH Stroke Score
Level of Consciousness: 0 - Alert
LOC Questions: 0-Answers both correctly
LOC Commands: 0-Performs both correctly
Best Horizontal Gaze: 0-Normal
Visual Zacarias: 0=Normal, no visual loss
Facial Palsy: 0=Normal, symmetrical
Motor - Right Arm: 0=No drift 10 seconds
Motor - Left Arm: 0=No drift 10 seconds
Motor - Right Le-No drift 5 seconds
Motor - Left Le-No drift 5 seconds
Limb Ataxia: 0-Absent
Sensation: 0-Normal
Best Language: 0-No aphasia
Dysarthria: 0-Normal
Extinction and Inattention: 0-No abnormality
NIH Total Score:: 0
Tenecteplase Contraindications
Reasons for NON-Tx with Thrombolytics ABSOLUTE Exclusions: Time-out of window
IAT Contraindications: NIHSS < 6 and >6 hrs from onset/last seen normal
Modified Dickson Score (MRS)
-
Modified Dickson Scale (mRS): No symptoms
Score: 0
Past History
Past Medical / Surgical History
Past Medical History: Arrhythmia and Hypothyroidism
Past Surgical History: Cardiac (pacemaker ) and Orthopedic
Social History
Tobacco: Non-smoker
Alcohol: None
Drug: None
Personal:
Living: with family
Review of Systems
-
History Source: Patient
All other systems: Reviewed and negative
Physical Exam
-
General: Comfortable and Appears Stated Age
Eyes: No Ptosis
HEENT: Normocephalic, Atraumatic and Moist Mucous Membranes
Neck: Full Range of Motion
Respiratory: No Dyspnea
Cardiac: No JVD
GI: Non-distended
Skin: Unremarkable, Warm and Dry
Extremities: No Clubbing, No Cyanosis and No Edema
Psych: Intact Judgement/Insight
Extended Neurological Exam
Mood & Affect: Mood Unremarkable and Affect Unremarkable
Attention Span & Concentration: Awake, Alert, Interactive and No Difficulty with 2 Step Request
Memory: Able to Recall
Tremor: Hand Tremor Absent and Head Tremor Absent
Involuntary Movement: None
Speech: Quality Unremarkable, Quantity Unremarkable and Rate of Production Unremarkable
Cranial Nerve II: Left Eye: Pupillary Reactivity Unremarkable and Pupillary Size Unremarkable
Cranial Nerve II: Right Eye: Pupillary Reactivity Unremarkable, Pupillary Size Unremarkable (dilated) and Other (no papilledema)
Cranial Nerves III, IV, : Extraocular Movement: Extraocular Movement Full in all Directions
Cranial Nerve VII: Facial Symmetry: Normal Facial Symmetry
Cranial Nerve VIII: Hearing: Unremarkable Hearing to Normal Conversational Volume
Cranial Nerve XI: Shoulder Shrug: Unremarkable
Cranial Nerve XII: Tongue Protusion: Midline
Muscle Strength, Overall: Full Throughout
Muscle Bulk & Tone: Bulk Unremarkable and Tone Unremarkable
Pronator Drift: No Drift in Upper Extremities and No Drift in Lower Extremities
Deep Tendon Reflexes: Unremarkable Throughout
Coordination: Xhyczl-ofvi-tqxqdo Testing Unremarkable
Data Reviewed
-
CT-A: Ordered
CT Head: Report Reviewed and Image Reviewed
MRI Head: Ordered
Lipid Profile: Ordered
HgbA1C: Ordered
Reviewed with: Physician, Patient and Family
Old Records: Summarized
Medications
-
Home Medications
�Medication �Instructions �Recorded
flecainide 100 mg tablet 100 mg PO BID 08/03/24
metoprolol succinate 25 mg 25 mg PO BID #60 tabs 08/03/24
tablet,extended release 24 hr
Past History
Past History
ED Past Medical History: Arrthythmia and Other (Hypothyroidism)
ED Past Surgical History: Orthopedic and Other (Pacer placement)
Family/Social History
Tobacco: Non-smoker
Alcohol: None
Drug: None
Personal:
Living: with family

Documented by User: Hector Fowler MD 02/23/25 16:14
CVA Assessment
NIH Stroke Score
NIH Total Score:: 0
Modified Dickson Score (MRS)
-
Score: 0
[2025-02-23 13:55] LABS: TSH Reflex To Free T4 2.08 uIU/ml (0.47-4.68)
[2025-02-23] MEDS: LIPITOR 40 MG PO (18:16)
[2025-02-23] MEDS: TAMBOCOR 100 MG PO (21:09)
[2025-02-23] MEDS: TOPROL XL 25 MG PO (21:13)
[2025-02-24 03:00] VITALS: BP 127/79
[2025-02-24 05:32] LABS: % Basophils 0.3 % (0-2); % Eosinophils 2.5 % (0-6); % Immature Granulocytes 0.3 % (0-0.5); % Lymphocytes 34.4 % (20.5-51.1); % Monocytes 8.5 % (1.7-9.3); Absolute Eosinophils 0.2 10^3/uL (0-0.7); Absolute Lymphocytes 2.4 10^3/uL (1.2-3.4); Absolute Monocytes 0.6 10^3/uL (0.1-0.6); Absolute Neutrophils 3.7 10^3/uL (1.4-6.5); Hematocrit 40.4 % (39.0-52.0); Hemoglobin 14.1 g/dL (13.0-18.0); Mean Corp Hgb Conc. 34.9 g/dL (33.0-37.0); Mean Corpuscular Hgb 33.3 pg (27.0-31.0); Mean Corpuscular Volume 95.5 fL (80.0-94.0); Mean Platelet Volume 10.6 fL (7.4-10.4); Nucleated Red Blood Cells % 0 % (-); Platelet Count 197 10^3/uL (130-400); Red Blood Cell Count 4.23 10^6/uL (4.70-6.10); Red Cell Dist. Width 12.4 % (11.5-14.5); White Blood Cell Count 6.8 10^3/uL (4.8-10.8)
[2025-02-24 06:00] LABS: ALT (SGPT) 17 U/L (0-50); AST (SGOT) 23 U/L (17-59); Albumin 3.9 g/dl (3.5-5.0); Alkaline Phosphatase 39 U/L (38-126); Blood Urea Nitrogen 19 mg/dl (9-20); Calcium 9.2 mg/dl (8.4-10.2); Carbon Dioxide 24 mmol/L (22-30); Chloride 111 mmol/L (98-107); Estimated Creatinine Clearance 64 ml/min; Glucose 91 mg/dl (70-99); HDL Cholesterol 49 mg/dl; LDL Cholesterol, Calculated 119 mg/dl; Potassium 4.4 mmol/L (3.5-5.1); Sodium 141 mmol/L (135-145); Total Cholesterol 188 mg/dl (50-199); Triglyceride 100 mg/dl (10-149); Very Low Density Lipoprotein 20 mg/dl (0-30); eGFR > 60.00
--- NOTE | 2025-02-24 06:05 | W.PN.UPDATE ---
Update Note
Progress Note Update
MRI Brain re ordered as RN states order is cancelled and patient is upset due to the cancelation of MRI as he was told to stay overnight for MRI. Neurology notes and Admitting Dr note states for MRI brain to r/o stroke. Will order MRI brain
--- NOTE | 2025-02-24 06:13 | PTCARENOTE ---
Pt very agitated due to staff not being able to provide time for MRI. Attempted multiple times to explain to patient that MRI is ordered and that unsure of time. Also explained to patient that multiple factors can contribute to MRI being delayed
that is not something our staff can control. Pt continued to be angry, stating 'nobody knows anything' and 'I only stayed overnight because they told me I will have an MRI in the morning.' [employer] TECHNOLOGIST notified and MRI re-ordered (had previously been
cancelled). Pt then used call guido and was found to be pleasant, asking for toothbrush and toothpaste.
[2025-02-24 07:37] VITALS: BP 135/75
[2025-02-24] MEDS: ASPIR LOW (ENTERIC COATED) 81 MG PO (07:44)
[2025-02-24] MEDS: TAMBOCOR 100 MG PO (07:44)
[2025-02-24] MEDS: PLAVIX 75 MG PO (07:44)
--- NOTE | 2025-02-24 10:23 | W.PN.HOSP.TC ---
Addendum entered and electronically signed by Brooklyn Munoz MD 02/24/25 17:13:
I saw and evaluated the patient independently. I reviewed the resident�s note and agree with findings and plan as documented by Dr. Woodward.
GENERAL: well developed, well nourished, male in no apparent distress
HEENT: NC/AT
HEART: regular rate and rhythm, +S1, +S2
LUNGS : clear to auscultation bilaterally
ABDOM: soft, nontender, nondistended, + bowel sounds
EXT: no cyanosis, clubbing, or edema
NEUROLOGIC: grossly intact
Recurrent transient right eye vision loss--possibly TIA--no other neuro findings--sent from ophtho--head CT neg, head and neck CTA neg--apprec neuro--pacer interrogated and no findings--vision returned to normal--no need for inpt MRI brain or
ECHO--cont asa--was some discussion about adding plavix by neuro declined--start high dose statin to get LDL < 70 (current 119)
History of supraventricular Tachycardia--Last echo from 06/1024 TTE: LV ejection fraction is 55-60%--cont flecanide, torpol
Subclinical Hypothyroidism HX as of June 2024-TSH 4.33 in WNL on 07/14/2024- Follow-up at outpatient setting
DVT proph-- SCD
CODE STATUS : DNR confirmed by patient
OK for d/c
Original Note:
Today's Communication/Plan
-
- Patient was followed by neurology and medically cleared to be discharged today with recommendation to obtain a brain MRI at outpatient setting
- Will send prescription for the medications recommended by neurology
Assessment / Plan
Assessment / Plan
Impression: Patient is a 84-year-old male who was sent to ER by his fork lift mechanic due to having a history of 2 episodes of transient right eye vision loss. His first episode was about 1 to 2 weeks ago and it lasted in 1 minute and he earned all
right vision back without any respiratory issue with his vision. His second episode of vision loss on his right eye happened on last and it resolved by itself in 1 minute. His fork lift mechanic did not mention about the problem and asked
him to go to the ER. At ER admission, his symptoms considered signs of stroke. He was obtained CT head, CTA head neck angiography and consulted to neurology.
Plan:
#Recurrent of transient right eye vision loss
-No other neurological symptoms during the vision loss(no sensorimotor deficit, no aphasia, no balance issues, no cognitive problems)
-No visual deficit following the episodes, per patient report
-Given 325 mg of aspirin as loading dose at ER admission
-CTA head and neck: Mild atherosclerotic changes as above. 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 Negative for major branch vessel occlusion, dissection,
aneurysm formation, or flow limiting stenosis.
-Head CT: There are bilateral white matter hypodensities which are nonspecific, but most likely related to chronic small vessel ischemic disease.No significant change. No acute intracranial abnormality identified
-Neurology was consulted with a concern of CVA/TIA --recommended to start DAPT therapy with Plavix and aspirin and started on statin treatment
- Neurology recommended to obtain a brain MRI at outpatient setting
- Lipid panel: LDL 119, triglyceride 100, total cholesterol 188, hemoglobin A1c:5
#History of supraventricular Tachycardia
-Last echo from 06/1024 TTE: LV ejection fraction is 55-60%.
- Continue flecainide at 100mg q12h.
-Continue Toprol
- Has PM implant Medtronic MRI compatible dual chamber ( 08/03/[address] Yee - [facility])
#Subclinical Hypothyroidism HX as of June 2024
-TSH 4.33 in WNL on 07/14/2024
- Follow-up at outpatient setting
DVT Px: SCD
CODE STATUS : DNR confirmed by patient
Anticipated Discharge: Today
Subjective/Interval History
-
Date of Service: February 24, 2025
No complaints over the night
Objective Data
-
Labs:
Laboratory Results
02/24/25
05:02
WBC 6.8
Hgb 14.1
Hct 40.4
Plt Count 197
Sodium 141
Potassium 4.4
Chloride 111 H
Carbon Dioxide 24
BUN 19
Creatinine 0.8
Glucose 91
Calcium 9.2
Total Bilirubin 1.0
AST 23
ALT 17
Alkaline Phosphatase 39
Vital Signs:
Vital Signs
Temp Pulse Resp BP Pulse Ox
97.9 F 64 17 135/75 97
02/24/25 07:37 02/24/25 07:37 02/24/25 07:37 02/24/25 07:37 02/24/25 07:37
I&O
02/23/25 02/24/25 02/25/25
06:59 06:59 06:59
Intake Total 1080 / 1080
Balance 1080 / 1080
Review of Systems
-
History Source: Patient
All other systems: Reviewed and negative
Physical Exam
-
General: Well Developed, Well Nourished, Comfortable and Conversant
HEENT: Normocephalic and Atraumatic
Respiratory: Clear to Auscultation
Cardiac: Regular Rhythm and S1/S2
GI: Soft, Nontender and Nondistended
Musculoskeletal: No Clubbing, No Cyanosis and No Edema
Skin: Warm
Neuro: Awake, Alert, Oriented, AO x 3 and Nonfocal/Grossly Intact
Psych: Calm
[2025-02-24 11:00] VITALS: BP 134/76
--- NOTE | 2025-02-24 12:28 | W.DCSUMMARY ---
Addendum entered and electronically signed by Brooklyn Munoz MD 02/24/25 17:54:
Read, reviewed, and agree. See same day progress note for additional details. Time spent coordinating care, DC planning, review of DC plan of care with resident, transition of care, review of records in EMR, med rec, consults, notes, d/w
consultants, nursing, family, and CM = 22 minutes
Original Note:
Discharge Summary
Discharge Data
Date of Admission: 02/23/25
Date of Discharge: 02/24/25
-
Pending Results: No
Hospital Course
Disposition : Home
Principal Discharge diagnosis : Recurrent of transient right eye vision loss likely secondary to CVA/TIA
Chronic Discharge diagnosis : History of supraventricular Tachycardia, Subclinical Hypothyroidism
Hospital Course :
#Recurrent of transient right eye vision loss likely secondary to CVA/TIA: The patient is an 84-year-old male who was sent to ER by his re dye hand due to having 2 episodes of right eye transient vision loss. Patient reported having these 2
episodes in the last 1-2 weeks and they have resolved in 1 minute by itself without any residual vision loss. Patient was not complaining any visual loss at ER admission. He was admitted with a concern of CVA/TIA. His vitals found significant
with mildly elevated blood pressure of 149/81 and tachycardia with heart rate of 80. His EKG did not show any significant problem and noted Atrial-paced rhythm with prolonged AV conduction. His head CT did not show any acute abnormality and only
noted chronic small vessel ischemic disease. His head/ neck CT angio did not show any major branch vessel occlusion, dissection, aneurysm formation, or flow limiting stenosis. Patient was given 325 mg of aspirin at the ER. Patient was seen by
neurology at ER admission and planned to have a brain MRI. The patient was started on aspirin, Plavix and statin. The following day, patient had a follow-up visit by neurologist and recommended to have the brain MRI at outpatient setting and
continue only to aspirin and high-dose of statin at discharge. Patient recommended to have a follow-up with his PCP in a week to have a brain MRI and to be considered for ECHO.
# Other chronic medical problems include supraventricular tachycardia and subclinical hypothyroidism. This chronic medical problems were stable and treated as able to.
Important imaging findings :
02/23/[address]
Exams: CT Head W/o Iv Contrast
EXAMINATION: CT of the head without contrast.
INDICATION: Visual change, right eye.
COMPARISON: 06/22/2024.
TECHNIQUE: Axial acquisition from the skull base through vertex. Coronal reformats provided. Automated dose reduction technique was utilized.
FINDINGS:
There is mild bilaterally symmetric prominence of the ventricles and extra-axial CSF spaces representing volume loss. There are bilateral white matter hypodensities which are nonspecific, but most likely related to chronic small vessel ischemic
disease. There is no acute bleed, mass effect, or midline shift. The posterior fossa structures are within normal limits. There are some incidental choroid plexus cysts as seen previously. No acute loss of savage-white differentiation is identified.
There is no skull fracture.
IMPRESSION: No significant change. No acute intracranial abnormality identified.
Electronically signed by Constantino Palma DO, 02/23/2025 11:00 AM
02/23/2025 CT Head & Neck Angio W/wo IV
EXAMINATION: CT angiogram of the head and neck with intravenous contrast.
CLINICAL INFORMATION: Acute stroke. Vision loss.
TECHNIQUE: Helical acquisition through the head and neck following the intravenous administration of 80 cc of Omnipaque. Axial reconstruction and sagittal and coronal reformats. 3-D volume rendered reconstruction provided. Automated dose reduction
technique was utilized.
COMPARISON: Noncontrast head CT of earlier the same date.
FINDINGS:
Aortic arch is normally opacified. There is a conventional anatomic configuration of the great vessels arising from the arch. On the right, common carotid is patent without abnormal narrowing. Minimal calcific plaque at the carotid bulb, no
associated stenosis. Small amount of calcific plaque along the proximal extracranial internal carotid. There is no significant stenosis of the extracranial internal carotid. Evaluation of the superior right vertebral is somewhat limited by streak
artifacts from dental fillings. Otherwise, the right vertebral shows some tortuosity, no flow-limiting stenosis.
On the left, common carotid is patent without abnormal narrowing. Small amount of calcific plaque at the carotid bulb and along the proximal internal carotid, no flow-limiting stenosis. Extracranial internal carotid is patent without abnormal
narrowing. Left vertebral artery also shows some tortuosity, no flow-limiting stenosis identified. Evaluation slightly limited at some levels secondary to artifacts.
Intracranially, the intradural vertebral arteries are patent. Both of the intradural vertebral arteries taper to somewhat narrow caliber distally, but show no focal stenoses. The basilar artery is patent and relatively narrow in caliber throughout.
Bilateral posterior cerebral arteries are patent. There is persistent origin of the right posterior cerebral. The anterior cerebral arteries show azygos A2 segment, normal anatomic variation. Bilateral proximal middle cerebral artery branches
are patent without abnormal narrowing. Intracranial internal carotid arteries are patent and show some calcific plaque formation along cavernous segments, no flow-limiting stenosis. No major branch vessel occlusion, dissection, or aneurysm formation
identified. Dural venous sinuses are opacified.
No enhancing intracranial lesions are identified. There are changes of previous ocular surgery bilaterally. No cervical adenopathy is identified. Thyroid gland is unremarkable. No adenopathy and the superior mediastinum. Limited images through the
upper lungs limited by respiratory motion artifacts, no acute abnormality identified. Mild degenerative changes cervical spine.
IMPRESSION: Mild atherosclerotic changes as above. 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 Negative for major branch vessel occlusion, dissection, aneurysm
formation, or flow limiting stenosis.
Electronically signed by Constantino Palma DO, 02/23/2025 3:06 PM
[employer] Dose Report: Up-to-date CT equipment and radiation dose reduction techniques were employed. CTDIvol: 2.4 - 26.4 mGy. DLP: 391 mGy-cm.
Dictated By: Constantino Palma DO.
Dictated Date & Time: 02/23/25 4632
Procedure findings :
Discharge Plan
-
Patient Disposition: Home (Routine Discharge)
Discharge Diagnosis/Procedures: Recurrent of transient right eye vision loss
History of supraventricular Tachycardia
Subclinical Hypothyroidism
Condition: Good
Diet: Low Cholesterol
Activity: No restrictions and As tolerated
Driving Restrictions: As prior to admission
Referrals:
Hector Fowler MD [Active, Neurology] - in one to two weeks
Doyle Peterson DO [Family Provider, Internal Medicine] - in less than 1 week
Referral Note: Please see your PCP to be checked for obtaining a brain MRI and being considered having an echo due to concern of having a CVA/TIA
Prescriptions:
New
aspirin 81 mg Tablet,Delayed Release (Dr/Ec)
81 mg PO DAILY 30 Days Qty: 30 0RF
rosuvastatin 40 mg tablet
40 mg PO DAILY 30 Days Qty: 30 0RF
Continued
flecainide 100 mg tablet
100 mg PO BID
metoprolol succinate 25 mg tablet extended release 24 hr
25 mg PO HS
Discharge Orders:
Discharge Patient (As Directed); Ordered 02/24/25
Ordered By: Karime Woodward
Discharge Date and Time
Discharge Date/Time: 02/24/25 15:55
Print Language: ROMANSH
[2025-02-24 15:54] VITALS: BP 120/75
--- NOTE | 2025-02-24 16:04 | CM ---
Patient seen at bedside 3 west with patient and physicians. Patient for discharge today. OBS/GONZALEZ form placed on chart. patient home with no needs.
Plan; home with no needs
== END 2025-02-24 15:55 | disposition home or self-care (01) ==
LOC: 3 WEST ACU 13:28
PROVIDERS: Clinical Nurse Specialist Family Health; Student in an Organized Health Care Education/Training Program; ADMITTING PHYSICIAN Internal Medicine; ATTENDING PHYSICIAN Internal Medicine; CONSULT PHYSICIAN Psychiatry & Neurology Neurology; EMERGENCY PHYSICIAN Emergency Medicine; FAMILY PHYSICIAN Internal Medicine
DX: H53.121 Transient visual loss, right eye (principal); H53.9 Unspecified visual disturbance; E03.8 Other specified hypothyroidism; I45.10 Unspecified right bundle-branch block; I34.0 Nonrheumatic mitral (valve) insufficiency; I47.19 Other supraventricular tachycardia; G93.0 Cerebral cysts; Z66 Do not resuscitate; Z95.0 Presence of cardiac pacemaker; Z79.899 Other long term (current) drug therapy; Z88.1 Allergy status to other antibiotic agents; R03.0 Elevated blood-pressure reading, without diagnosis of hypertension
CPT/HCPCS: 70450; 70496; 70498; 80053; 80061; 83036; 84443; 84484; 85025; 85027; 93005; 97161; 99285; G0378; Q9967

== ENCOUNTER → 2025-03-05 07:02 | Outpatient (REF) | payer MEDICARE, BC, SELFPAY | LOC: RCS 07:02 | PROVIDERS: ATTENDING PHYSICIAN Internal Medicine Cardiovascular Disease; FAMILY PHYSICIAN Internal Medicine | DX: H53.8 Other visual disturbances (principal); R42 Dizziness and giddiness | CPT/HCPCS: 93306 ==

== ENCOUNTER → 2025-06-16 06:37 | Outpatient (REF) | payer MEDICARE, BC, SELFPAY ==
[2025-06-16 09:45] LABS: Hematocrit 42.8 % (39.0-52.0); Hemoglobin 14.7 g/dL (13.0-18.0); Mean Corp Hgb Conc. 34.3 g/dL (33.0-37.0); Mean Corpuscular Volume 96.2 fL (80.0-94.0); Nucleated Red Blood Cells % 0 % (-); Red Cell Dist. Width 12.2 % (11.5-14.5)
[2025-06-16 09:46] LABS: Urine Character Clear (Clear)
[2025-06-16 10:13] LABS: ALT (SGPT) 31 U/L (0-50); AST (SGOT) 30 U/L (17-59); Albumin 4.6 g/dl (3.5-5.0); Alkaline Phosphatase 42 U/L (38-126); Blood Urea Nitrogen 17 mg/dl (9-20); Calcium 9.6 mg/dl (8.4-10.2); Carbon Dioxide 28 mmol/L (22-30); Chloride 106 mmol/L (98-107); Glucose 91 mg/dl (70-99); HDL Cholesterol 68 mg/dl; LDL Cholesterol, Calculated 46 mg/dl; Potassium 4.6 mmol/L (3.5-5.1); Sodium 141 mmol/L (135-145); Total Protein 6.8 g/dl (6.3-8.2); Very Low Density Lipoprotein 15 mg/dl (0-30); eGFR > 60.00
[2025-06-16 10:21] LABS: Platelet Count 167 10^3/uL (130-400)
[2025-06-16 10:44] LABS: PSA, Total - Screen 10.40 ng/ml (0.0-4.0); TSH 4.08 uIU/ml (0.47-4.68)
[2025-06-16 10:53] LABS: Urine Red Blood Cell 0-2 /HPF (0-2)
== END ==
LOC: HWLAB 06:37
PROVIDERS: ATTENDING PHYSICIAN Internal Medicine
DX: R35.1 Nocturia (principal); I25.10 Atherosclerotic heart disease of native coronary artery without angina pectoris; I48.0 Paroxysmal atrial fibrillation; Z12.5 Encounter for screening for malignant neoplasm of prostate
CPT/HCPCS: 36415; 80053; 80061; 81003; 81015; 84443; 85025; G0103